=== PATIENT | female | born 1965 | race Caucasian/White ===

== ENCOUNTER 2021-08-11 17:32 | Emergency (ER) | payer OTHER, SELFPAY ==
--- NOTE | ~2021-08-11 | CT_ITS ---
EXAMINATION: CT ANGIOGRAM HEAD CT ANGIOGRAM NECK CLINICAL INFORMATION: Left-sided numbness. Facial numbness. COMPARISON: None available. TECHNIQUE: Initial noncontrast manufacturing engineer chief imaging of the head and neck was performed. Noncontrast head CT was also performed. Test bolus sequences followed by intravenous administration 70 mL of Omnipaque 350. Helical imaging was performed in the axial plane from the aortic arch to the skull vertex. Delayed postcontrast imaging of the head was also performed. The data was processed at the glass technologist's workstation for generation of MIP sequences. Angled MIPs and volume rendered reformatted images were also generated at an offline 3D workstation. Stenoses are assessed in accordance with NASCET criteria unless otherwise indicated. DLP: 2267 mGy-cm FINDINGS: CT Head: There is no evidence of acute intracranial hemorrhage or edematous territorial infarction. There is no abnormal attenuation within the brain parenchyma. Mayfield-white matter differentiation is preserved. The ventricles are normal in size and configuration. No evidence for obstructive hydrocephalus. No abnormal mass effect or midline shift. No extra-axial fluid collections. No pathologic intra-axial enhancement or regional oligemia. No acute soft tissue or osseous abnormalities. Persistent metopic suture. Mild mucosal thickening of the paranasal sinuses. The mastoid air cells and middle ear cavities are clear. Mild degenerative arthropathy of the temporomandibular joints. CT Neck: Heterogeneous generalized enlargement of the thyroid gland. Mildly prominent right-sided level IIa lymph node measures up to 1.3 cm (within normal limits). The remaining cervical soft tissues are within normal limits. Straightening of the normal cervical lordosis. Advanced degenerative disc disease at C5-C6 and C6-C7 with disc-osteophyte complex formation. Facet and uncovertebral joint arthropathy leads to osseous encroachment on the neural foramina at C5-C6 and C6-C7. CT Upper Chest: Nonspecific mosaic attenuation of the upper lungs. Otherwise, the visualized lung apices and upper mediastinum are within normal limits. Neck CTA: Aortic Arch: Normal contour and caliber with mild calcific atherosclerotic disease. Classic 3 vessel branching pattern of the aortic arch. Great Vessel Origins: No significant stenosis of the branch origins. Right Common Carotid Artery: No focal stenosis or occlusion. Cervical Right Internal Carotid Artery: Normal opacification without focal stenosis or occlusion. Left Common Carotid Artery: No focal stenosis or occlusion. Cervical Left Internal Carotid Artery: Normal opacification without focal stenosis or occlusion. Cervical Right Vertebral Artery: Co-dominant. No focal stenosis or occlusion. Cervical Left Vertebral Artery: Co-dominant. No focal stenosis or occlusion. Brain CTA: Intracranial Internal Carotid Arteries: Calcific atherosclerotic disease of the intracranial internal carotid arteries without occlusion. Moderate left-sided and mild right-sided atherosclerotic stenoses of the supraclinoid segments of the internal carotid arteries. Right Anterior Cerebral Artery: Normal A1 segment. Normal opacification of the distal DENISE segments. Left Anterior Cerebral Artery: Normal A1 segment. Normal opacification of the distal DENISE segments. Anterior Communicating Artery: Normal. Right Middle Cerebral Artery: Normal M1 segment of the MCA without focal stenosis or occlusion. Normal arborization of the distal segments. Left Middle Cerebral Artery: Normal M1 segment of the MCA without focal stenosis or occlusion. Normal arborization of the distal segments. Right Vertebral Artery: Normal V4 segment. Normal opacification of the proximal segments of the posterior inferior cerebellar artery. Left Vertebral Artery: Normal V4 segment. Normal opacification of the proximal segments of the posterior inferior cerebellar artery. Basilar Artery: Normal without focal stenosis or occlusion. Normal appearance of the proximal superior cerebellar arteries. Right Posterior Cerebral Artery: The P1 segment is diminutive. origin of the CANDLE MOLDER with robust opacification of the posterior communicating artery. Normal opacification of the distal CANDLE MOLDER segments. Left Posterior Cerebral Artery: Normal P1 segment. Normal opacification of the distal CANDLE MOLDER segments. Normal opacification of the superior sagittal, straight, transverse, and sigmoid sinuses. CT/CT angio head neck IMPRESSION: 1. No evidence of acute intracranial hemorrhage or edematous territorial infarction. 2. CTA of the head and neck without proximal occlusion. Atherosclerotic disease causes mild to moderate stenoses of the supraclinoid segments of the ICAs bilaterally. No additional flow-limiting stenoses. 3. Moderate multilevel degenerative spondyloarthropathy of the cervical spine. 4. Heterogeneous generalized enlargement of the thyroid gland. This may be further characterized with serum thyroid function testing and thyroid ultrasound.
[2021-08-11 17:43] VITALS: BP 156/72; PULSE 74; RESP 18; TEMP 36.6; O2SAT 99; BMI 38.9
[2021-08-11 17:55] LABS: MANUAL DIFF FLAG NO
[2021-08-11 18:08] LABS: Anion Gap 12 (12-20); Blood Urea Nitrogen 11 mg/dL (9-16); Calcium 9.1 mg/dL (8.4-10.2); Carbon Dioxide 25 mmol/L (22-29); Chloride 106 mmol/L (96-108); Creatinine Clr Calc Pharmacy 100.6; Estimated Glomerular Filt Rate > 60; Glucose Random 100 mg/dL (60-115); Potassium 4.8 mmol/L (3.3-5.1); Sodium 138 mmol/L (135-145)
[2021-08-11 18:10] LABS: Basophils Absolute Auto 0.1 X10*3/uL (0.0-0.2); Basophils Percent Auto 0.6 % (0-2); Eosinophils Absolute Auto 0.3 X10*3/uL (0.0-0.4); Hematocrit 37.5 % (37.0-47.0); Hemoglobin 11.6 g/dl (12.0-16.0); Imm Gran Abs Auto 0.03 X10*3/uL (0.00-0.03); Imm Gran Pct Auto 0.4 % (0.0-0.4); Lymphocytes Absolute Auto 2.4 X10*3/uL (1.2-4.9); Mean Corpuscular HGB Conc 30.9 g/dl (31.0-35.0); Mean Corpuscular Hemoglobin 25.3 pg (27.0-33.0); Mean Corpuscular Volume 81.9 fL (80.0-98.0); Mean Platelet Volume 9.3 fL (9.4-12.3); Monocytes Absolute Auto 0.5 X10*3/uL (0.1-1.2); Platelet Count 325 X10*3/uL (160-400); Red Blood Count 4.58 X10*6/uL (4.20-5.50); Red Cell Distribution Width 15.9 % (11.0-16.0); White Blood Count 8.2 X10*3/uL (4.8-10.8)
--- NOTE | 2021-08-11 19:35 | ED_ITS ---
HPI - General Adult General Chief complaint: General Medical Stated complaint: tingling numbing sensations in face and legs Source: patient Mode of arrival: ambulatory Limitations: no limitations History of Present Illness HPI narrative: 56-year-old female presents with 5 days of left lower extremity tingling and 1 day of left-sided facial tingling and arm numbness. Does not report any focal neural deficits, or any other concerning symptoms. Onset (ago): day(s) (5) Location: face, left, upper extremity and lower extremity Severity: moderate Quality: dull Relieving factors: none Exacerbating factors: none Associated symptoms: weakness Treatments prior to arrival: none Related Data Allergies Allergy/AdvReac Type Severity Reaction Status Date / Time atorvastatin [From Lipitor] Allergy Intermediate Rash Verified 08/11/21 17:43 prednisone Allergy Mild Gastrointestinal Verified 08/11/21 17:43 Upset Review of Systems Review of Systems: Constitutional: No Fever, No Chills ENT/Mouth: No Ear Pain, No Hoarseness, No sore throat Eyes: No Eye Pain, No Swelling, No Redness, No Foreign Body Cardiovascular: No Chest Pain, No SOB Respiratory: No Cough, No Dyspnea Gastrointestinal: No Nausea, No Vomiting, No Diarrhea, No abdominal Pain Genitourinary: No Dysuria, No Hematuria Musculoskeletal: No joint pain, No Myalgias, No Joint Swelling Skin: No Skin lacerations, No rash Neuro: Positive left-sided Weakness, positive left-sided facial Numbness, p ositive left-sided facial and extremity Paresthesias, No Loss of Consciousness, No Dizziness, No Headache Psych: No Anxiety/Panic, No Depression Heme/Lymph: no easy bruising, no Lymphadenopathy Endocrine: No Polyuria, No Polydipsia Yes all other systems are reviewed and are negative [facility] Past Medical History Attestation statement: The following information was validated with the patient. Source: old records reviewed Medical History GERD (gastroesophageal reflux disease) HLD (hyperlipidemia) HTN (hypertension) Social History Social History Advance Directives: No Patient : No Physical Exam ED Vital Signs: Vital Signs - 24 hr 08/11/21 17:43 08/12/21 00:21 Temperature 97.9 F Pulse Rate 74 71 Respiratory Rate 18 16 Blood Pressure 156/72 H 121/66 Pulse Oximetry 99 99 BMI result Body Mass Index 38.9 Appearance: Alert. Oriented X3. No acute distress. Head: Normal external exam. Normocephalic. Atraumatic. No Zhao signs noted. No raccoon eyes noted Eyes: PERRLA. EOMI. Conjunctiva and sclera normal. Eyelids normal. ENT: TM's Normal. Pharynx normal. Uvula midline. Moist mucous membranes. No trismus noted. No drooling noted. No muffled voice noted. Neck: Normal inspection. Neck supple. No adenopathy. Thyroid Normal. No meningeal signs. No neck mass noted. CVS: Normal heart rate and rhythm. Heart sound normal. No murmurs noted. Pulses equal to all extremities. Respiratory: No respiratory distress. Painless inspiration. Breath sounds normal. No wheezes/rales/rhonchi noted. Chest nontender. No accessory muscle usage noted or decreased air movement noted. Abdomen: Soft and nontender. Bowel sounds normal in all 4 quadrants. No distention noted. No organomegaly noted. No visible injury noted. Back: No CVA tenderness. Full range of motion noted. Skin: Skin warm and dry. Normal skin color. Normal skin turgor. No rashes/lesions/lacerations noted. Extremities: No lower extremity edema. Extremities exhibit normal range of motion. Extremities nontender. Neuro: cranial nerves 2-12 intact, no focal neural deficits, strength 5/5 to all extremities, No motor deficit. No sensory deficit. NIH Stroke Scale Internal: Initial- Upon Arrival Level of Consciousness: Alert Level of Consciousness Questions: Answers both questions correctly Level of Consciousness Commands: Performs both tasks correctly Best Gaze: Normal Visual: No visual loss Facial Palsy: Normal Motor Arm (Right): No drift Motor Arm (Left): No drift Motor Leg (Right): No drift Motor Leg (Left): No drift Limb Ataxia: Absent Sensory: Normal Best Language: No aphasia Dysarthia: Normal Extinction and Inattention: No abnormality Score: 0 Course Course Course Narrative: 56-year-old female presents with 1 day of left-sided facial tingling, 3 days of left arm numbness and tingling, and 5 days of left lower extremity numbness and tingling. Does not report any loss of balance, changes in vision, headaches, nausea, vomiting, fevers, chills, falls, EtOH or illicit substance abuse, or any other concerning symptoms. Will order CTA of head and neck to rule out brain injury, will order labs and EKG. 00:15 CTA of head and neck negative for acute findings however does show some arthrosclerotic disease causing mild to moderate stenosis of the supraclinoid segments of the ICAs bilaterally. I did discuss this finding in detail with the patient and the patient's , they do understand that they must follow-up primary care physician. 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 This could be what is causing her numbness down the arm and leg. Other incidental finding is the enlargement of the thyroid gland, patient does have a known goiter. Plan of care is to discharge home with referral to Dr. Dean as well as primary care physician.Patient verbalized understanding of and agrees to plan of care to discharge home. Verbalized understanding of signs and symptoms indicating need for emergent intervention Medical Decision Making Differential Diagnosis Differential Diagnosis: CVA, SAH, tumor, ACS Medical Records Medical records reviewed: Yes I reviewed the patient's medical records. Lab Data Lab results reviewed: Yes I reviewed the patient's lab results. Result diagrams: 08/11/21 17:51 08/11/21 17:51 Labs: Lab Results 08/11/21 08/11/21 08/11/21 Range/Units 17:51 17:51 20:14 WBC 8.2 (4.8-10.8) X10*3/uL RBC 4.58 (4.20-5.50) X10*6/uL Hgb 11.6 L (12.0-16.0) g/dl Hct 37.5 (37.0-47.0) % MCV 81.9 (80.0-98.0) fL MCH 25.3 L (27.0-33.0) pg MCHC 30.9 L (31.0-35.0) g/dl RDW 15.9 (11.0-16.0) % Plt Count 325 (160-400) X10*3/uL MPV 9.3 L (9.4-12.3) fL Immature Gran % (Auto) 0.4 (0.0-0.4) % Neut % (Auto) 61.0 (45-73) % Lymph % (Auto) 29.0 (20-40) % Gregory % (Auto) 6.0 (2-11) % Eos % (Auto) 3.0 (0-4) % Baso % (Auto) 0.6 (0-2) % Lymph # (Auto) 2.4 (1.2-4.9) X10*3/uL Gregory # (Auto) 0.5 (0.1-1.2) X10*3/uL Eos # (Auto) 0.3 (0.0-0.4) X10*3/uL Baso # (Auto) 0.1 (0.0-0.2) X10*3/uL Abs Immat Gran (auto) 0.03 (0.00-0.03) X10*3/uL Absolute Neuts (auto) 5.0 (2.0-8.3) x10*3/uL Absolute Nucleated RBC 0.000 (0.0-0.012) X10*3/uL Nucleated RBC % (auto) 0.0 (0.0-0.2) /100WBC PT 11.1 (9.9-13.0) SEC INR 1.0 (0.9-1.1) APTT 33.7 (24.1-38.0) SEC Sodium 138 (135-145) mmol/L Potassium 4.8 (3.3-5.1) mmol/L Chloride 106 (96-108) mmol/L Carbon Dioxide 25 (22-29) mmol/L Anion Gap 12 (12-20) BUN 11 (9-16) mg/dL Creatinine 0.72 (0.5-1.4) mg/dL Estim Creat Clear Calc 100.6 Estimated GFR > 60 Random Glucose 100 (60-115) mg/dL Calcium 9.1 (8.4-10.2) mg/dL Magnesium (1.6-2.6) mg/dL Troponin I High Sens (<3.5-17.0) ng/L B-Natriuretic Peptide (<100) pg/mL 08/11/21 08/11/21 Range/Units 20:14 20:14 WBC (4.8-10.8) X10*3/uL RBC (4.20-5.50) X10*6/uL Hgb (12.0-16.0) g/dl Hct (37.0-47.0) % MCV (80.0-98.0) fL MCH (27.0-33.0) pg MCHC (31.0-35.0) g/dl RDW (11.0-16.0) % Plt Count (160-400) X10*3/uL MPV (9.4-12.3) fL Immature Gran % (Auto) (0.0-0.4) % Neut % (Auto) (45-73) % Lymph % (Auto) (20-40) % Gregory % (Auto) (2-11) % Eos % (Auto) (0-4) % Baso % (Auto) (0-2) % Lymph # (Auto) (1.2-4.9) X10*3/uL Gregory # (Auto) (0.1-1.2) X10*3/uL Eos # (Auto) (0.0-0.4) X10*3/uL Baso # (Auto) (0.0-0.2) X10*3/uL Abs Immat Gran (auto) (0.00-0.03) X10*3/uL Absolute Neuts (auto) (2.0-8.3) x10*3/uL Absolute Nucleated RBC (0.0-0.012) X10*3/uL Nucleated RBC % (auto) (0.0-0.2) /100WBC PT (9.9-13.0) SEC INR (0.9-1.1) APTT (24.1-38.0) SEC Sodium (135-145) mmol/L Potassium (3.3-5.1) mmol/L Chloride (96-108) mmol/L Carbon Dioxide (22-29) mmol/L Anion Gap (12-20) BUN (9-16) mg/dL Creatinine (0.5-1.4) mg/dL Estim Creat Clear Calc Estimated GFR Random Glucose (60-115) mg/dL Calcium (8.4-10.2) mg/dL Magnesium 2.1 (1.6-2.6) mg/dL Troponin I High Sens < 3.5 (<3.5-17.0) ng/L B-Natriuretic Peptide 21 (<100) pg/mL Imaging Data CTA head neck: Attestation: I personally reviewed and interpreted this imaging study as follows: Radiologist's impression: FINDINGS: CT Head: There is no evidence of acute intracranial hemorrhage or edematous territorial infarction. There is no abnormal attenuation within the brain parenchyma. Mayfield-white matter differentiation is preserved. The ventricles are normal in size and configuration. No evidence for obstructive hydrocephalus. No abnormal mass effect or midline shift. No extra-axial fluid collections. No pathologic intra-axial enhancement or regional oligemia. No acute soft tissue or osseous abnormalities. Persistent metopic suture. Mild mucosal thickening of the paranasal sinuses. The mastoid air cells and middle ear cavities are clear. Mild degenerative arthropathy of the temporomandibular joints. CT Neck: Heterogeneous generalized enlargement of the thyroid gland. Mildly prominent right-sided level IIa lymph node measures up to 1.3 cm (within normal limits). The remaining cervical soft tissues are within normal limits. Straightening of the normal cervical lordosis. Advanced degenerative disc disease at C5-C6 and C6-C7 with disc-osteophyte complex formation. Facet and uncovertebral joint arthropathy leads to osseous encroachment on the neural foramina at C5-C6 and C6-C7. CT Upper Chest: Nonspecific mosaic attenuation of the upper lungs. Otherwise, the visualized lung apices and upper mediastinum are within normal limits. Neck CTA: Aortic Arch: Normal contour and caliber with mild calcific atherosclerotic disease. Classic 3 vessel branching pattern of the aortic arch. Great Vessel Origins: No significant stenosis of the branch origins. Right Common Carotid Artery: No focal stenosis or occlusion. Cervical Right Internal Carotid Artery: Normal opacification without focal stenosis or occlusion. Left Common Carotid Artery: No focal stenosis or occlusion. Cervical Left Internal Carotid Artery: Normal opacification without focal stenosis or occlusion. Cervical Right Vertebral Artery: Co-dominant. No focal stenosis or occlusion. Cervical Left Vertebral Artery: Co-dominant. No focal stenosis or occlusion. Brain CTA: Intracranial Internal Carotid Arteries: Calcific atherosclerotic disease of the intracranial internal carotid arteries without occlusion. Moderate left-sided and mild right-sided atherosclerotic stenoses of the supraclinoid segments of the internal carotid arteries. Right Anterior Cerebral Artery: Normal A1 segment. Normal opacification of the distal DENISE segments. Left Anterior Cerebral Artery: Normal A1 segment. Normal opacification of the distal DENISE segments. Anterior Communicating Artery: Normal. Right Middle Cerebral Artery: Normal M1 segment of the MCA without focal stenosis or occlusion. Normal arborization of the distal segments. Left Middle Cerebral Artery: Normal M1 segment of the MCA without focal stenosis or occlusion. Normal arborization of the distal segments. Right Vertebral Artery: Normal V4 segment. Normal opacification of the proximal segments of the posterior inferior cerebellar artery. Left Vertebral Artery: Normal V4 segment. Normal opacification of the proximal segments of the posterior inferior cerebellar artery. Basilar Artery: Normal without focal stenosis or occlusion. Normal appearance of the proximal superior cerebellar arteries. Right Posterior Cerebral Artery: The P1 segment is diminutive. origin of the BROWNFIELD PROGRAM COORDINATOR with robust opacification of the posterior communicating artery. Normal opacification of the distal BROWNFIELD PROGRAM COORDINATOR segments. Left Posterior Cerebral Artery: Normal P1 segment. Normal opacification of the distal BROWNFIELD PROGRAM COORDINATOR segments. Normal opacification of the superior sagittal, straight, transverse, and sigmoid sinuses. CT/CT angio head neck IMPRESSION: 1. No evidence of acute intracranial hemorrhage or edematous territorial infarction. ? 2. CTA of the head and neck without proximal occlusion. Atherosclerotic disease causes mild to moderate stenoses of the supraclinoid segments of the ICAs bilaterally. No additional flow-limiting stenoses. ? 3. Moderate multilevel degenerative spondyloarthropathy of the cervical spine. ? 4. Heterogeneous generalized enlargement of the thyroid gland. This may be further characterized with serum thyroid function testing and thyroid ultrasound. ECG Data Attestation: I personally reviewed and interpreted this ECG as follows: Prior ECG tracings: not available for review Interpretation: Vent. rate 74 BPM RI interval 174 ms QRS duration 78 ms QT/QTc 392/435 ms P-R-T axes 62 -20 16 Normal sinus rhythm Normal ECG No previous ECGs available 11-AUG-2021 19:48:19 Discharge Plan Discharge Clinical Impression: Numbness and tingling of left side of face, Carotid artery stenosis Patient Disposition: Home, Self-Care Instructions: Carotid Artery Disease (DC), Paresthesia (ED) Additional Instructions: You were evaluated for numbness to left side of your face, arm and leg. CT angio of head and neck is negative for acute findings requiring emergent intervention. Incidental findings are bilateral carotid stenosis with mild to moderate occlusion. You must follow up with primary care physician and vascular for further intervention. I referred you to Dr. Dean. Incidental finding on the CT angiogram is an enlarged thyroid, which you have a known goiter. And cervical spondylosis or arthritis of the spine. You may consider following up with pain management or Spinal Orthopedics for further management. Thank you for choosing this emergency department for evaluation. Please follow-up with primary care physician as needed. Return to the emergency department for any new, concerning, or worsening symptoms. Referrals: Tomas Johnson MD [Physician] - 2 days (Cervical spondylosis) Ravi Dean MD [Physician] - 2 days (Bilateral mild to moderate carotid stenosis)
--- NOTE | 2021-08-11 19:39 | ECG_ITS ---
Test Reason : NUMBNESS LEFT LEG /ARM Blood Pressure : / mmHG Vent. Rate : 074 BPM Atrial Rate : 074 BPM P-R Int : 174 ms QRS Dur : 078 ms QT Int : 392 ms P-R-T Axes : 062 -20 016 degrees QTc Int : 435 ms Normal sinus rhythm Normal ECG No previous ECGs available Referred By: Neena Wan Electronically Signed By:Jb Bryson
[2021-08-11 20:32] LABS: Magnesium 2.1 mg/dL (1.6-2.6)
[2021-08-11 20:38] LABS: Prothrombin Time 11.1 SEC (9.9-13.0)
[2021-08-11 20:39] LABS: B Type Natriuretic Peptide 21 pg/mL (<100); Troponin-I High Sensitivity < 3.5 ng/L (<3.5-17.0)
[2021-08-11 20:41] LABS: Partial Thromboplastin Time 33.7 SEC (24.1-38.0)
[2021-08-11] MEDS: iohexoL 350 MG/ML 100 ML INFUS..BTL IV (21:58)
[2021-08-12 00:21] VITALS: BP 121/66; PULSE 71; RESP 16; O2SAT 99
== END 2021-08-12 02:19 | disposition home or self-care (01) ==
PROVIDERS: Nurse Practitioner Family; Emergency Provider Emergency Medicine
DX: R20.2 Paresthesia of skin (principal); I65.23 Occlusion and stenosis of bilateral carotid arteries; I10 Essential (primary) hypertension; R53.1 Weakness; E78.5 Hyperlipidemia, unspecified
CPT/HCPCS: 36415; 70496; 70498; 80048; 83735; 83880; 84484; 85025; 85610; 85730; 93005; 99283; 99284; Q9967

== ENCOUNTER → 2021-09-12 15:04 | Outpatient (BNVA) | payer OTHER, SELFPAY | PROVIDERS: PCP Internal Medicine; Visit Provider Nurse Practitioner Family | DX: Z13.89 Encounter for screening for other disorder (principal) ==

== ENCOUNTER → 2021-09-19 09:19 | Outpatient (BNVA) | payer OTHER, SELFPAY | PROVIDERS: PCP Internal Medicine; Visit Provider Surgery Vascular Surgery | DX: Z13.89 Encounter for screening for other disorder (principal) ==

== ENCOUNTER 2021-10-31 10:25 | Outpatient (REF) | payer OTHER, SELFPAY ==
--- NOTE | ~2021-10-31 | US_ITS ---
EXAMINATION: RIGHT and LEFT LOWER EXTREMITY VENOUS ULTRASOUND (Reflux Exam) CLINICAL INDICATION: leg pain and varicose veins. COMPARISON: None. TECHNIQUE: Color flow triplex imaging and compression Doppler was performed to evaluate both the deep and the superficial systems bilaterally. To evaluate the superficial system, the examination was performed in the upright position. Color-flow Doppler ultrasound and compression ultrasound were utilized. In addition, maneuvers were utilized to demonstrate reflux. FINDINGS: 1. DEEP VENOUS ULTRASOUND OF THE RIGHT LOWER EXTREMITY: Respiratory variation, normal compression and augmented flow are noted in the right common femoral vein as well as the right popliteal vein and there is no evidence of deep venous thrombosis at these locations. There is no evidence of reflux in the deep system in either the common femoral vein or the popliteal vein. There is no evidence of a Malone's cyst. 2. SUPERFICIAL ULTRASOUND WITH DOPPLER OF RIGHT LOWER EXTREMITY: The right great saphenous vein at the saphenofemoral junction measures 8 mm, at the mid thigh 4 mm, [id number] 3 mm, [id number] 3 mm, at mid calf 3 mm and at the ankle measures 2 mm. There is no reflux demonstrated in the right great saphenous vein. The right small saphenous vein measures 2-3 mm and shows no reflux. There are 2 perforators in the proximal thigh that measure 3 mm and do not demonstrate reflux. There is a retail interior designer in the calf that measures 2 mm and does not demonstrate reflux. 3. DEEP VENOUS ULTRASOUND OF THE LEFT LOWER EXTREMITY: Respiratory variation, normal compression and augmented flow are noted in the left common femoral vein as well as the left popliteal vein and there is no evidence of deep venous thrombosis at these locations. There is no evidence of reflux in the deep system in either the common femoral vein or the popliteal vein. . There is no evidence of a Malnoe's cyst. 4. SUPERFICIAL ULTRASOUND WITH DOPPLER OF LEFT LOWER EXTREMITY: Left great saphenous vein at the saphenofemoral junction measures 9 mm, at the mid thigh 4 mm, [id number] 3 mm, [id number] 3 mm, at mid calf 3 mm and at the ankle measures 3 mm. There is no reflux demonstrated in the left great saphenous vein. The left small saphenous vein measures 3-5 mm and shows no reflux. There is a retail interior designer in the calf that measures 3 mm and does not demonstrate reflux. There is a varicosity in the mid thigh that measures 4 mm and does not demonstrate reflux. US/US venous duplex LE BI IMPRESSION: 1. No evidence of reflux or thrombus in the common femoral veins or popliteal veins bilaterally. 2. The saphenous systems are competent bilaterally.
== END 2021-10-31 10:26 | disposition home or self-care (01) ==
LOC: HO.US 10:25
PROVIDERS: PCP Internal Medicine; Visit Provider Surgery Vascular Surgery
DX: I83.11 Varicose veins of right lower extremity with inflammation (principal)
CPT/HCPCS: 93970

== ENCOUNTER 2022-10-19 09:42 | Outpatient (REF) | payer OTHER, SELFPAY ==
--- NOTE | ~2022-10-19 | US_ITS ---
EXAMINATION: US EXTRACRANIAL CAROTID DUPLEX, BILATERAL CLINICAL INFORMATION: Bilateral carotid stenoses. COMPARISON: None available. TECHNIQUE: Real-time ultrasound and Doppler techniques (integrating B-mode 2-D vascular images, Doppler spectral analysis and color-flow Doppler imaging) were utilized to interrogate the extracranial carotid arteries, the vertebral arteries and proximal subclavian arteries bilaterally. The degree of stenosis is determined by criteria similar to NASCET. FINDINGS: Right Side: 1. There is no atherosclerotic plaque seen in the bifurcation/proximal ICA region. 2. The common carotid artery PSV proximally is 11 cm/s and distally 96 cm/s. 3. The proximal internal carotid artery velocities are 112 cm/s systolic and 29 cm/s diastolic. 4. The proximal external carotid artery PSV is 95 cm/s. 5. The vertebral artery shows antegrade flow. 6. The subclavian artery waveforms are normal. Left Side: 1. There is no atherosclerotic plaque seen in the bifurcation/proximal ICA region. 2. The common carotid artery PSV proximally is 130 cm/s and distally 96 cm/s. 3. The proximal internal carotid artery velocities are 50 cm/s systolic and 13 cm/s diastolic. 4. The proximal external carotid artery PSV is 79 cm/s. 5. The vertebral artery shows antegrade flow. 6. The subclavian artery waveforms are normal. Incidental note made of an enlarged heterogeneous thyroid goiter. US/US carotid duplex BI IMPRESSION: 1. RIGHT: Normal right internal carotid artery without atherosclerotic plaque or hemodynamically significant stenosis. 2. LEFT: Normal left internal carotid artery without atherosclerotic plaque or hemodynamically significant stenosis. 3. Enlarged thyroid goiter. Consider dedicated thyroid ultrasound.
== END 2022-10-19 09:43 | disposition home or self-care (01) ==
LOC: HO.HMGCX 09:42
PROVIDERS: PCP Internal Medicine; Visit Provider Surgery Vascular Surgery
DX: I65.23 Occlusion and stenosis of bilateral carotid arteries (principal)
CPT/HCPCS: 93880

== ENCOUNTER → 2022-11-15 10:57 | Outpatient (BNVA) | payer OTHER, SELFPAY | PROVIDERS: PCP Internal Medicine; Visit Provider Surgery Vascular Surgery ==

== ENCOUNTER 2023-04-08 08:14 | Emergency (ER) | payer OTHER, SELFPAY ==
--- NOTE | ~2023-04-08 | CT_ITS ---
EXAMINATION: CT ANGIOGRAM OF THE CHEST WITH AND WITHOUT CONTRAST (CT PULMONARY ANGIOGRAM FOR PE) CLINICAL INFORMATION: Reason for Exam r/o PE COMPARISON: None available. TECHNIQUE: Prior to contrast administration, noncontrast localization images were obtained. Subsequently, multidetector volumetric imaging was performed from the thoracic inlet to below the diaphragms following the administration of 65 mL Omnipaque 350 intravenous contrast. No contrast reaction reported Sagittal, coronal, and MIP oblique sagittal reformatted images were obtained on the CT workstation, uploaded to PACS, and reviewed. This CT examination was performed using dose optimization techniques as appropriate, variously including the following: *Automated exposure control *Adjustment of mA and/or kV according to patient size (this includes techniques or standardized protocols for targeted exams where dose is matched to indication/reason for exam; i.e. extremities or head) *Use of iterative reconstruction technique Total exam dose-length product 283 mGy-cm FINDINGS: QUALITY OF STUDY/CONTRAST BOLUS: Satisfactory. PULMONARY ARTERIES: No pulmonary emboli. THORACIC AORTA: No aneurysm. LUNG: There is diffuse groundglass opacity seen in both lungs likely low-grade inflammatory process. No acute pneumonic consolidation, mass or pulmonary nodules seen. Mild atelectatic changes are seen in the lingula PLEURA: No pleural effusion or pneumothorax. MEDIASTINUM: Normal heart size. No pericardial effusion. No hilar or mediastinal lymphadenopathy. No evidence of septal bowing or right heart strain. CORONARY ARTERY CALCIFICATION: Mild coronary artery calcification seen along the left coronary artery CHEST WALL/AXILLA: There are small shotty lymph nodes seen in left axilla. Benign lymph nodes with central fatty lucency seen in the right axilla. The chest wall is unremarkable. OSSEOUS STRUCTURES: No aggressive lytic or sclerotic process seen. The paravertebral soft tissues are normal. UPPER ABDOMEN: Unremarkable. No reflux of contrast into the hepatic veins to suggest elevated right heart pressures. CT/CT angio chest PE protocol IMPRESSION: No evidence of PE. No evidence of aortic aneurysm or dissection. Groundglass opacity seen throughout both lungs likely low-grade inflammatory process. No acute consolidation seen either. Platelike atelectasis in the lingula. VTE: negative
--- NOTE | ~2023-04-08 | XR_ITS ---
EXAMINATION: XR CHEST CLINICAL INFORMATION: Chest pain COMPARISON: None available. TECHNIQUE: 2 views of the chest were obtained. FINDINGS: No significant abnormality is noted involving the heart, lungs, mediastinum, bony thorax or soft tissues. XR/XR chest 2V IMPRESSION: Unremarkable chest examination.
--- NOTE | 2023-04-08 08:15 | ECG_ITS ---
Test Reason : CHEST PAIN Blood Pressure : / mmHG Vent. Rate : 066 BPM Atrial Rate : 066 BPM P-R Int : 182 ms QRS Dur : 078 ms QT Int : 406 ms P-R-T Axes : 067 -15 012 degrees QTc Int : 425 ms Normal sinus rhythm Low voltage QRS RSR' or QR pattern in V1 suggests right ventricular conduction delay Nonspecific T wave abnormality Anterior leads Abnormal ECG When compared with ECG of 11-AUG-2021 19:48, Inverted T waves have replaced nonspecific T wave abnormality in Anterior leads Referred By: Generic ED Physician Electronically Signed By:RADHA WONG MD
[2023-04-08 08:25] VITALS: BP 111/59; PULSE 70; RESP 16; TEMP 35.9; O2SAT 100; BMI 39.6
--- NOTE | 2023-04-08 09:16 | ED_ITS ---
HPI - Chest Pain General Chief Complaint: Chest Pain Stated Complaint: chest and back pain Time Seen by Provider: 04/08/23 08:50 Source: patient Mode of arrival: ambulatory Limitations: no limitations History of Present Illness HPI narrative: This is a 58 years old female presented to the emergency department complaining of chest pain. She states that the pain started in the back between the shoulder bleed radiated to the chest and back pain has been ongoing for about 1 year and occasionally radiate to the left chest. Denies any exertional symptoms, denies any diaphoresis. Patient has history of hypertension hypercholesterolemia and borderline diabetes. MD complaint: chest pain Onset (ago): month(s) Timing of current episode: episodic Prior episodes: Yes Onset: during rest Pain location: substernal Pain radiation: back Severity: moderate Quality: aching Relieving factors: nothing Exacerbating factors: nothing Context: recent illness Associated symptoms: nausea Risk Factors Coronary artery disease risk factors: diabetes, hyperlipidemia and hypertension Thoracic aortic dissection risk factors: none Related Data Home Medications Medication Instructions Recorded Confirmed aspirin 81 mg tablet,delayed 81 mg PO DAILY 09/12/21 release lisinopril 5 mg tablet 5 mg PO DAILY 09/19/21 cholecalciferol (vitamin D3) 50 50 mcg PO DAILY 11/15/22 mcg (2,000 unit) capsule famotidine 20 mg tablet 20 mg PO BID 11/15/22 simvastatin 40 mg tablet 40 mg PO BEDTIME 11/15/22 fluticasone propionate 50 1 spray intranasal BID PRN 04/08/23 mcg/actuation nasal congestion spray,suspension meclizine 25 mg tablet 25 mg PO TID PRN dizziness 04/08/23 ondansetron HCl 8 mg tablet 8 mg PO Q8H PRN nausea 04/08/23 sumatriptan succinate 25 mg tablet 25 mg PO DAILY MRX1 PRN Migraine 04/08/23 Headache Previous Rx's Medication Instructions Recorded tizanidine 2 mg tablet 2 mg PO Q8H PRN muscle spasticity 09/12/21 #60 tabs naproxen 500 mg tablet (Naprosyn) 500 mg PO BID PRN PAIN #20 tabs 04/08/23 oxycodone 5 mg capsule 5 mg PO Q8H PRN pain #12 caps 04/08/23 Allergies Allergy/AdvReac Type Severity Reaction Status Date / Time atorvastatin [From Lipitor] Allergy Intermediate Rash Verified 11/15/22 11:03 prednisone Allergy Mild Gastrointestinal Verified 11/15/22 11:03 Upset Review of Systems 2 Constitutional: Constitutional: Reports no additional constitutional complaints ENT: Reports system reviewed and no additional complaints, except as documented Cardiovascular: Cardiovascular: Reports no additional cardiovascular complaints Respiratory: Respiratory: Reports no additional respiratory complaints Neurologic: Reports system reviewed and no additional complaints, except as documented [facility] Past Medical History Medical History HLD (hyperlipidemia) HTN (hypertension) GERD (gastroesophageal reflux disease) Social History Social History Patient Tobacco Use Status: Never used Tobacco Smoked in Last 30 Days: No Advance Directives: No Advance Directives Information Provided: No Patient : No Physical Exam 2 Vital Signs: Vital Signs: Last Vital Signs Temp 96.7 F L 04/08/23 08:25 Pulse 65 04/08/23 11:05 Resp 16 04/08/23 11:05 BP 127/56 L 04/08/23 11:05 Pulse Ox 99 04/08/23 11:05 O2 Del Method Room Air 04/08/23 11:05 BMI result Body Mass Index 39.6 Const: General: well developed and alert Nutritional Appearance: average body habitus Limitations: no limitations HEENT: Head: Yes normal to inspection Ears: hearing grossly normal bilaterally General nose exam: Normal external nose present Face and sinus: Yes normal facial exam Mouth: Normal oral and palatal mucosa present Teeth and gingiva: dentition normal Throat: Yes posterior oropharynx normal Neck: Neck: Yes normal visual inspection Chest: Chest palpation & inspection: normal inspection of the chest Resp: Effort & Inspection: normal respiratory effort Auscultation: clear to auscultation bilaterally Cardio: Jugular venous distension: no JVD Rate: regular rate Rhythm: r egular rhythm GI: Inspection: Yes normal to inspection Palpation (GI): Soft to palpation, not firm and nontender Auscultation: normal bowel sounds Skin: General skin exam: no rashes or lesions noted, elasticity normal and turgor normal Lesions: no lesions Rashes: no rashes Extrem: General: Yes normal to inspection, Yes full ROM and Yes capillary refill normal Course Reevaluation(s) Reevaluation #1: feels better imaging negative labs ok delta tropi flat Time: 15:30 Medications Administered Discontinued Medications Generic Name Dose Route Start Last Admin Trade Name Michael PRN Reason Stop Dose Admin Iohexol 65 ml 04/08/23 12:04 04/08/23 12:05 Iohexol 350 Mg/Ml 75 Ml Infus..Btl IV 04/08/23 12:05 65 ml ONCE ONE Administration Medical Decision Making Medical Decision Making [facility] Narrative: Patient presented to the emergency department complaining of back pain radiates to the chest,, CTA was negative a delta troponin was flat plan discharge Differential Diagnosis Differential Diagnoses: The differential diagnosis associated with the presentation includes ACS/PE/aortic dissection Admission/Observation Consideration of admission/observation: Escalation of care including admission/observation considered Consult Healthcare Provider Management of the patient was discussed with: Hospitalist Lab Data [facility] Lab Attestation statement: I reviewed the patient's lab results. 04/08/23 09:43 04/08/23 11:13 Labs: Lab Results 04/08/23 04/08/23 04/08/23 Range/Units 09:43 11:13 14:22 WBC 7.0 (4.8-10.8) X10*3/uL RBC 4.35 (4.20-5.50) X10*6/uL Hgb 11.4 L (12.0-16.0) g/dl Hct 36.3 L (37.0-47.0) % MCV 83.4 (80.0-98.0) fL MCH 26.2 L (27.0-33.0) pg MCHC 31.4 (31.0-35.0) g/dl RDW 14.3 (11.0-16.0) % Plt Count 279 (160-400) X10*3/uL MPV 9.5 (9.4-12.3) fL Immature Gran % (Auto) 0.3 (0.0-0.4) % Neut % (Auto) 61.8 (45-73) % Lymph % (Auto) 27.0 (20-40) % [place] % (Auto) 7.4 (2-11) % Eos % (Auto) 2.9 (0-4) % Baso % (Auto) 0.6 (0-2) % Lymph # (Auto) 1.9 (1.2-4.9) X10*3/uL [place] # (Auto) 0.5 (0.1-1.2) X10*3/uL Eos # (Auto) 0.2 (0.0-0.4) X10*3/uL Baso # (Auto) 0.0 (0.0-0.2) X10*3/uL Abs Immat Gran (auto) 0.02 (0.00-0.03) X10*3/uL Absolute Neuts (auto) 4.3 (2.0-8.3) x10*3/uL Absolute Nucleated RBC 0.000 (0.0-0.012) X10*3/uL Nucleated RBC % (auto) 0.0 (0.0-0.2) /100WBC Sodium 139 (135-145) mmol/L Potassium 4.5 (3.3-5.1) mmol/L Chloride 107 (96-108) mmol/L Carbon Dioxide 28 (22-29) mmol/L Anion Gap 9 L (12-20) BUN 12 (9-16) mg/dL Creatinine 0.74 (0.5-1.4) mg/dL Estim Creat Clear Calc 96.4 Estimated GFR > 60 Random Glucose 93 (60-115) mg/dL Calcium 10.0 D (8.4-10.2) mg/dL Troponin I High Sens < 2.7 < 2.7 (<3.5-17.0) ng/L Independent Interpretation I performed an independent interpretation of an: EKG Interpretation: Normal sinus rhythm rate [address]-T changes normal electrocardiogram Radiology Impression Discussion of test interpretation with radiology: I have reviewed the radiologist's reading. Radiologist Impression: CORONARY ARTERY CALCIFICATION: Mild coronary artery calcification seen along the left coronary artery CHEST WALL/AXILLA: There are small shotty lymph nodes seen in left axilla. Benign lymph nodes with central fatty lucency seen in the right axilla. The chest wall is unremarkable. OSSEOUS STRUCTURES: No aggressive lytic or sclerotic process seen. The paravertebral soft tissues are normal. UPPER ABDOMEN: Unremarkable. No reflux of contrast into the hepatic veins to suggest elevated right heart pressures. CT/CT angio chest PE protocol IMPRESSION: No evidence of PE. No evidence of aortic aneurysm or dissection. Groundglass opacity seen throughout both lungs likely low-grade inflammatory process. No acute consolidation seen either. Platelike atelectasis in the lingula. VTE: negative External Record Review External record reviewed: Inpatient record Prescription Management I considered prescription management with: Pain Medication Discharge Plan Discharge Clinical Impression: Chest pain, Pain, upper back Patient Disposition: Home, Self-Care Instructions: Chest Pain (DC), Back Pain (ED) Prescriptions: New oxycodone 5 mg capsule 5 mg PO Q8H PRN (Reason: pain) Qty: 12 0RF Rx Instructions: Partial Fill upon patient request. naproxen [Naprosyn] 500 mg tablet 500 mg PO BID PRN (Reason: PAIN) Qty: 20 0RF No Action ondansetron HCl 8 mg tablet 8 mg PO Q8H PRN (Reason: nausea) sumatriptan succinate 25 mg tablet 25 mg PO DAILY MRX1 PRN (Reason: Migraine Headache) meclizine 25 mg tablet 25 mg PO TID PRN (Reason: dizziness) fluticasone propionate 50 mcg/actuation spray,suspension 1 spray intranasal BID PRN (Reason: congestion) aspirin 81 mg tablet,delayed release (DR/EC) 81 mg PO DAILY tizanidine 2 mg tablet 2 mg PO Q8H PRN (Reason: muscle spasticity) Qty: 60 0RF lisinopril 5 mg tablet 5 mg PO DAILY famotidine 20 mg tablet 20 mg PO BID cholecalciferol (vitamin D3) 50 mcg (2,000 unit) capsule 50 mcg PO DAILY simvastatin 40 mg tablet 40 mg PO BEDTIME Referrals: Kirstie Nassar MD [Primary Care Provider] - 2 days Stand Alone Forms: Work/School Release
[2023-04-08 09:50] LABS: MANUAL DIFF FLAG NO
[2023-04-08 09:53] LABS: Basophils Percent Auto 0.6 % (0-2); Eosinophils Absolute Auto 0.2 X10*3/uL (0.0-0.4); Eosinophils Percent Auto 2.9 % (0-4); Hematocrit 36.3 % (37.0-47.0); Hemoglobin 11.4 g/dl (12.0-16.0); Imm Gran Abs Auto 0.02 X10*3/uL (0.00-0.03); Imm Gran Pct Auto 0.3 % (0.0-0.4); Lymphocytes Absolute Auto 1.9 X10*3/uL (1.2-4.9); Mean Corpuscular HGB Conc 31.4 g/dl (31.0-35.0); Mean Corpuscular Hemoglobin 26.2 pg (27.0-33.0); Mean Corpuscular Volume 83.4 fL (80.0-98.0); Mean Platelet Volume 9.5 fL (9.4-12.3); Monocytes Absolute Auto 0.5 X10*3/uL (0.1-1.2); Monocytes Percent Auto 7.4 % (2-11); Neutrophils Absolute Auto 4.3 x10*3/uL (2.0-8.3); Neutrophils Percent Auto 61.8 % (45-73); Platelet Count 279 X10*3/uL (160-400); Red Blood Count 4.35 X10*6/uL (4.20-5.50); Red Cell Distribution Width 14.3 % (11.0-16.0)
--- OUTSIDE RECORDS SUMMARY | 2023-04-08 10:00 | XMS_ITS | Continuity of Care Document ---
Author Name Unknown Organization [facility] Address [address] [place] [address] [address] [place] [address]- Care Team Providers Care Tie Tape Machine Operator Name Role Phone Kristie Nassar MD Primary Care Physician Encounter [facility] [place] Date(s): 11/22/22 - 11/29/22 [facility] [address] [place] [address]- Attending Physician: Zaina Robison RD Allergies, Adverse Reactions, Alerts Substance Reaction Severity Status predniSONE Active Lipitor Prednisone Active Medications aspirin 81 mg oral delayed release tablet 81 mg, 1, tablet, By Mouth, Daily, Refills 0, Maintenance, 03/06/22 10:27:00 EDT, Partial fill uponpatient request if the prescription is for a schedule II opioid drug. Start Date: 03/06/22 Status: Ordered famotidine 20 mg oral tablet 20 mg, 1, tablet, By Mouth, 2 times a day, Refills 0, Maintenance, 03/06/22 10:28:00 EDT, Partial fill upon patient request if the prescription is for a schedule II opioid drug. Start Date: 03/06/22 Status: Ordered lisinopril 5 mg oral tablet 5 mg, 1, tablet, By Mouth, Daily, # 30 tablet, Refills 0, Maintenance, 03/06/22 10:26:00 EDT, Partial fill upon patient request if the prescription is for a schedule II opioid drug. Start Date: 03/06/22 Status: Ordered simvastatin 40 mg oral tablet 40 mg, 1, tablet, By Mouth, Daily at bedtime, # 30 tablet, Refills 0, Maintenance, 12/14/20 7:34:00EDT, Partial fill upon patient request if the prescription is for a schedule II opioid drug. Start Date: 12/14/20 Status: Ordered Problem List Condition Confirmation Course Effective Dates Status H ealth Status Informant Binge eating disorder, mild, in partial remission Confirmed Active Diabetes Confirmed Active GERD (gastroesophageal reflux disease) Confirmed Active Hyperlipidemia Confirmed Active Severe obesity (BMI 35.0-39.9) with comorbidity Confirmed Active Social History Social History Type Response Smoking Status Never (less than 100 in lifetime) entered on: 02/23/22 Sex Patient Care team information Care Team Personnel Name: Elisha Gaspar RN Position: [facility] RN Member Role: Primary Care Nurse Name: Kristie Nassar MD Position: [facility] Physician - Primary Care Member Role: PCP Address: Address: [address] [place] [address]- Care Team Related Persons Name: MONI ROD Address: home [address] [place] [address] Name: AUGUSTINA ROD Address: home [address] [place] [address] Name: ANAYA URIAS Address: home [address] [place] [address] Name: TED ARAMBULA Address: home [address] [place] [address]
--- OUTSIDE RECORDS SUMMARY | 2023-04-08 10:00 | XMS_ITS | Continuity of Care Document ---
Author Name Unknown Organization [facility] Address [address] [place] [address] [address] [place] [address]- Care Team Providers Care Cognos Name Role Phone Kristie Nassar MD Primary Care Physician Encounter [facility] [place] Date(s): 11/22/22 - 12/22/[address] [place], [place] [address] Attending Physician: Sher Perez Admitting Physician: AdmSher dinh Referring Physician: Admtr ArRylee Allergies, Adverse Reactions, Alerts Substance Reaction Severity [...] Team Personnel Name: Elisha Gaspar RN Position: [facility] RN Member Role: Primary Care Nurse Name: Kristie Nassar MD Position: [facility] Physician - Primary Care Member Role: PCP Address: Address: [address] [place] [address]- Care Team Related Persons Name: MONI ROD Address: [address] [place] [address] Name: AUGUSTINA ROD Address: home [address] [place] [address] Name: ANAYA URIAS Address: home [address] [place] [address] Name: TED ARAMBULA Address: home [address] [place] [address]
[2023-04-08 11:05] VITALS: BP 127/56; PULSE 65; RESP 16; O2SAT 99
[2023-04-08 11:32] LABS: Anion Gap 9 (12-20); Blood Urea Nitrogen 12 mg/dL (9-16); Carbon Dioxide 28 mmol/L (22-29); Chloride 107 mmol/L (96-108); Creatinine Clr Calc Pharmacy 96.4; Estimated Glomerular Filt Rate > 60; Glucose Random 93 mg/dL (60-115); Potassium 4.5 mmol/L (3.3-5.1); Sodium 139 mmol/L (135-145)
[2023-04-08 11:43] LABS: Troponin-I High Sensitivity < 2.7 ng/L (<3.5-17.0)
[2023-04-08] MEDS: iohexoL 350 MG/ML 75 ML INFUS..BTL 65 ML IV (12:05)
[2023-04-08 14:49] LABS: Troponin-I High Sensitivity < 2.7 ng/L (<3.5-17.0)
== END 2023-04-08 15:55 | disposition home or self-care (01) ==
PROVIDERS: Emergency Provider Emergency Medicine; PCP Internal Medicine
DX: R07.9 Chest pain, unspecified (principal); M54.6 Pain in thoracic spine; I10 Essential (primary) hypertension; E78.5 Hyperlipidemia, unspecified; R73.03 Prediabetes; Z79.82 Long term (current) use of aspirin; Z79.899 Other long term (current) drug therapy
CPT/HCPCS: 36415; 71046; 71275; 80048; 84484; 85025; 93005; 99284; 99285; Q9967

== ENCOUNTER 2023-10-31 21:06 | Emergency (ER) | payer OTHER, SELFPAY ==
[2023-10-31 21:41] VITALS: BP 129/75; PULSE 82; RESP 16; TEMP 35.9; O2SAT 98; BMI 39.0
[2023-11-01 00:11] VITALS: BP 143/72; PULSE 77; RESP 18; TEMP 36.8; O2SAT 97
== END 2023-11-01 01:53 | disposition left against medical advice (07) ==
PROVIDERS: Emergency Provider Emergency Medicine; PCP Internal Medicine
DX: M79.675 Pain in left toe(s) (principal)
CPT/HCPCS: 99281

== ENCOUNTER 2024-01-29 12:08 | Emergency (ER) | payer OTHER, SELFPAY ==
--- NOTE | 2024-01-29 | ECG_ITS ---
Test Reason : CHEST TIGHTNESS Blood Pressure : / mmHG Vent. Rate : 074 BPM Atrial Rate : 074 BPM P-R Int : 174 ms QRS Dur : 086 ms QT Int : 360 ms P-R-T Axes : 065 -27 009 degrees QTc Int : 399 ms Normal sinus rhythm Low voltage QRS Cannot rule out Anterior infarct (cited on or before 29-JAN-2024) Abnormal ECG When compared with ECG of 08-APR-2023 08:15, No significant change was found Referred By: Generic ED Physician Electronically Signed By:JESSEE OLEARY
--- NOTE | ~2024-01-29 | XR_ITS ---
EXAMINATION: XR CHEST CLINICAL INFORMATION: Chest pain COMPARISON: Chest x-ray April 08, 2023 TECHNIQUE: 2 views of the chest were obtained. FINDINGS: No significant abnormality is noted involving the heart, lungs, mediastinum, bony thorax or soft tissues. XR/XR chest 2V IMPRESSION: Unremarkable examination. Electronically signed by: Marc Ansari MD 01/29/2024 03:57 PM EDT RP
[2024-01-29 12:39] LABS: MANUAL DIFF FLAG NO
[2024-01-29 12:40] LABS: Basophils Absolute Auto 0.1 X10*3/uL (0.0-0.2); Basophils Percent Auto 0.7 % (0-2); Eosinophils Absolute Auto 0.2 X10*3/uL (0.0-0.4); Eosinophils Percent Auto 2.5 % (0-4); Hematocrit 39.7 % (37.0-47.0); Hemoglobin 12.4 g/dl (12.0-16.0); Imm Gran Abs Auto 0.04 X10*3/uL (0.00-0.03); Imm Gran Pct Auto 0.5 % (0.0-0.4); Lymphocytes Percent Auto 26.7 % (20-40); Mean Corpuscular HGB Conc 31.2 g/dl (31.0-35.0); Mean Corpuscular Hemoglobin 25.7 pg (27.0-33.0); Mean Corpuscular Volume 82.2 fL (80.0-98.0); Mean Platelet Volume 9.5 fL (9.4-12.3); Monocytes Absolute Auto 0.4 X10*3/uL (0.1-1.2); Monocytes Percent Auto 5.4 % (2-11); Neutrophils Absolute Auto 4.8 x10*3/uL (2.0-8.3); Neutrophils Percent Auto 64.2 % (45-73); Platelet Count 270 X10*3/uL (160-400); Red Blood Count 4.83 X10*6/uL (4.20-5.50); Red Cell Distribution Width 14.8 % (11.0-16.0); White Blood Count 7.5 X10*3/uL (4.8-10.8)
[2024-01-29 12:59] LABS: Alanine Aminotransferase 39 U/L (0-31); Albumin Level 4.5 g/dL (3.5-5.0); Alkaline Phosphatase 97 U/L (39-117); Anion Gap 14 (12-20); Aspartate Amino Transferase 34 U/L (5-31); Bilirubin Total 0.4 mg/dL (0.0-1.0); Blood Urea Nitrogen 9 mg/dL (9-16); Calcium 9.7 mg/dL (8.4-10.2); Carbon Dioxide 23 mmol/L (22-29); Chloride 108 mmol/L (96-108); Estimated Glomerular Filt Rate > 60; Glucose Random 112 mg/dL (60-115); Potassium 4.2 mmol/L (3.3-5.1); Sodium 141 mmol/L (135-145)
[2024-01-29 13:05] VITALS: BP 118/69; PULSE 74; RESP 18; TEMP 36.8; O2SAT 98; BMI 37.5
--- NOTE | 2024-01-29 13:07 | ED_ITS ---
HPI - Chest Pain General Chief Complaint: Chest Pain Stated Complaint: CP-upper back pain Time Seen by Provider: 01/29/24 13:47 Source: patient Mode of arrival: ambulatory Limitations: no limitations History of Present Illness ED Provider: Erum Samano PA-C HPI narrative: Patient is a 58 year old assigned female at with a history of GERD presenting to the emergency department today with central chest pressure. Patient states that since yesterday she has had midsternal chest pain that doesn't radiate anywhere. Patient denies any dizziness, lightheadedness, abdominal pain, nausea, vomiting, fever, chills, blurry vision, double vision, loss of vision, difficulty breathing, shortness of breath, back pain, night sweats, pain with urination, increased urinary frequency, increased urinary urgency, blood in her urine or stool, syncope or a near syncopal episode, recent trauma or falls, bowel incontinence, bladder incontinence, or any other complaints at this time. Pain radiation: none Relieving factors: nothing Exacerbating factors: nothing Related Data Home Medications ?Medication ?Instructions ?Recorded ?Confirmed aspirin 81 mg tablet,delayed 81 mg PO DAILY 09/12/21 release lisinopril 5 mg tablet 5 mg PO DAILY 09/19/21 cholecalciferol (vitamin D3) 50 50 mcg PO DAILY 11/15/22 mcg (2,000 unit) capsule famotidine 20 mg tablet 20 mg PO BID 11/15/22 simvastatin 40 mg tablet 40 mg PO BEDTIME 11/15/22 fluticasone propionate 50 1 spray intranasal BID PRN 04/08/23 mcg/actuation nasal congestion spray,suspension meclizine 25 mg tablet 25 mg PO TID PRN dizziness 04/08/23 ondansetron HCl 8 mg tablet 8 mg PO Q8H PRN nausea 04/08/23 sumatriptan succinate 25 mg tablet 25 mg PO DAILY MRX1 PRN Migraine 04/08/23 Headache Previous Rx's ?Medication ?Instructions ?Recorded tizanidine 2 mg tablet 2 mg PO Q8H PRN muscle spasticity 09/12/21 #60 tabs naproxen 500 mg tablet (Naprosyn) 500 mg PO BID PRN PAIN #20 tabs 04/08/23 oxycodone 5 mg capsule 5 mg PO Q8H PRN pain #12 caps 11/20/23 Allergies Allergy/AdvReac Type Severity Reaction Status Date / Time atorvastatin [From Lipitor] Allergy Intermediate Rash Verified 01/29/24 13:08 prednisone Allergy Mild Gastrointestinal Verified 01/29/24 13:08 Upset Review of Systems 2 Constitutional: Constitutional: Reports no additional constitutional complaints, Denies chills, Denies fever(s) and Denies night sweats Eyes: Eyes: Reports no additional eye complaints, Denies blurry vision, Denies change in vision, Denies diplopia, Denies eye discharge, Denies loss of vision and Denies eye pain ENT: Denies dizziness Cardiovascular: Cardiovascular: Reports no additional cardiovascular complaints, Reports chest pain, Denies lightheadedness, Denies Loss of Consciousness and Denies dyspnea Respiratory: Respiratory: Reports no additional respiratory complaints and Denies dyspnea Gastrointestinal: Gastrointestinal: Reports no additional gastrointestinal complaints, Denies abdominal pain, Denies melena, Denies hematochezia, Denies change in bowel habits and Denies change in stool character Genitourinary: Genitourinary: Denies hematuria, Denies urinary frequency, Denies dysuria, Denies urinary incontinence, Denies urinary hesitancy and Denies urinary urgency Musculoskeletal: Musculoskeletal: Reports no additional musculoskeletal complaints, Denies numbness and Denies tingling Neurologic: Denies dizziness, Denies loss of vision, Denies numbness and Denies tingling Psychiatric: Psychiatric: Reports no additional psychiatric complaints Endocrine: Endocrine: Reports no additional endocrine complaints Hematologic/Lymphatic: Hematologic/Lymphatic: Reports no additional hematologic/lymphatic complaints Allergic/Immunologic: Allergic/Immunologic: Reports no additional allergic/immunologic complaints [facility] Past Medical History Attestation statement: The following information was validated with the patient. Source: old records reviewed and nursing notes reviewed Medical History HLD (hyperlipidemia) HTN (hypertension) GERD (gastroesophageal reflux disease) Social History Social History Patient Tobacco Use Status: Never used Tobacco Advance Directives: No Advance Directives Information Provided: No Do you have a plan to hurt others: No Plan Physical Exam 2 Vital Signs: Vital Signs: Last Vital Signs Temp 98.4 F 01/29/24 15:40 Pulse 65 01/29/24 15:40 Resp 18 01/29/24 15:40 BP 127/69 01/29/24 15:40 Pulse Ox 98 01/29/24 13:05 O2 Del Method Room Air 01/29/24 13:05 BMI result Body Mass Index 37.5 Const: General: cooperative, no acute distress, alert and awake Nutritional Appearance: well nourished Orientation/consciousness: patient oriented x3 Limitations: no limitations HEENT: Head: Yes normal to inspection and Yes atraumatic Ears: hearing grossly normal bilaterally and external ears normal General nose exam: Normal external nose present, no nasal discharge noted and no epistaxis Face and sinus: Yes normal facial exam, No abrasion and No laceration Mouth: Normal oral and palatal mucosa present, no drooling and no muffled voice Eyes: General: appearance normal, both eyes and all related structures P eriorbital: periorbital findings normal Eyelids: Yes eyelids normal C onjunctivae: conjunctivae normal Pupils: Equal, round and reactive pupils present EOM: EOMs intact bilaterally Neck: Neck: Yes normal visual inspection, Yes full ROM and Yes no lymphadenopathy Chest: Chest palpation & inspection: normal inspection of the chest Resp: Effort & Inspection: normal respiratory effort and able to speak in complete sentences GI: Inspection: Yes normal to inspection Neuro: General: patient oriented x3 and moves all extremities Cranial nerves: Yes Equal, round and reactive pupils present Cognition (Neuro): n ormal cognition Extrem: General: Yes normal to inspection, Yes full ROM and Yes capillary refill normal Psych: Appearance: grossly normal Mental Status: mental status grossly normal Affect: normal affect Attitude: cooperative Thought process: N ormal thought process present Thought content: Normal thought content present Insight: Good insight present (Psych) Course Course Course Narrative: This is an RME done by JT Javier: Additional HPI, ROS, PE not included below will be deferred to primary provider. 58 yo f hx of htn, hld, gerd presents w/ cp substernal non radiating and chronic back pain on going since this morning. Patient reports heavy pressure to the substernal region. Unable to identify precipitating or alleviating factors Appearance: Alert.? Oriented X3.? No acute cardiopulmonary distress distress.? Head: Normocephalic, atraumatic, no step-offs or deformities CVS: Pulses normal.? Respiratory: No respiratory distress.? Abdomen: Soft and nontender.? Skin: ? Normal skin color. Extremities: 5/5 strength to bilateral upper and lower extremities Neuro: Oriented X 3.? No motor deficit.? No sensory deficit. Medications Administered Discontinued Medications Generic Name Dose Route Start Last Admin Trade Name Michael PRN Reason Stop Dose Admin Sucralfate 1 gm 01/29/24 14:25 01/29/24 14:38 Sucralfate Oral Suspension 1 Gm/10 Ml Oral.Susp PO 01/29/24 14:26 1 gm ONCE ONE Administration Medical Decision Making Medical Decision Making [facility] Narrative: Patient is a 58 year old assigned female at with a history of GERD presenting to the emergency department today with chest pain. Patient's physical exam was unremarkable. Patient's blood work was unremarkable. Patient's EKG was unremarkable. Patient's chest x-ray showed no acute process. I explained my physical exam findings as well as all test results to the patient. I answered all questions asked by the patient. I stressed the importance of the patient taking her medication as directed (either prescribed or as the over the counter packaging recommends). I stressed the importance of the patient following up with her primary care provider. I stressed the importance of the patient returning to the emergency department immediately if her symptoms were to worsen or if she were to develop any dizziness, shortness of breath, difficulty breathing, chest pain, blurry vision, loss of vision, nausea, vomiting, abdominal pain, fever, chills, back pain, or any other complaints. Patient verbalized agreement and understanding with this treatment plan and discharge. Differential Diagnosis Differential Diagnoses: The differential diagnosis associated with the presentation includes Chest pain NSTEMI STEMI Atypical chest pain GERD Epigastric pain Admission/Observation Consideration of admission/observation: Escalation of care including admission/observation considered Patient would have been admitted to the hospital had her work up had any findings where hospital admission was appropriate and her clinical presentation warranted hospital admission. Lab Data [facility] Lab Attestation statement: I reviewed the patient's lab results. My interpretation of these results are in the [facility] Rationale portion of this note. 01/29/24 12:32 01/29/24 12:32 Labs: Lab Results 01/29/24 Range/Units 12:32 WBC 7.5 (4.8-10.8) X10*3/uL RBC 4.83 (4.20-5.50) X10*6/uL Hgb 12.4 (12.0-16.0) g/dl Hct 39.7 (37.0-47.0) % MCV 82.2 (80.0-98.0) fL MCH 25.7 L (27.0-33.0) pg MCHC 31.2 (31.0-35.0) g/dl RDW 14.8 (11.0-16.0) % Plt Count 270 (160-400) X10*3/uL MPV 9.5 (9.4-12.3) fL Immature Gran % (Auto) 0.5 H (0.0-0.4) % Neut % (Auto) 64.2 (45-73) % Lymph % (Auto) 26.7 (20-40) % [place] % (Auto) 5.4 (2-11) % Eos % (Auto) 2.5 (0-4) % Baso % (Auto) 0.7 (0-2) % Lymph # (Auto) 2.0 (1.2-4.9) X10*3/uL [place] # (Auto) 0.4 (0.1-1.2) X10*3/uL Eos # (Auto) 0.2 (0.0-0.4) X10*3/uL Baso # (Auto) 0.1 (0.0-0.2) X10*3/uL Abs Immat Gran (auto) 0.04 H (0.00-0.03) X10*3/uL Absolute Neuts (auto) 4.8 (2.0-8.3) x10*3/uL Absolute Nucleated RBC 0.000 (0.0-0.012) X10*3/uL Nucleated RBC % (auto) 0.0 (0.0-0.2) /100WBC PT Cancelled INR Cancelled Sodium 141 (135-145) mmol/L Potassium 4.2 (3.3-5.1) mmol/L Chloride 108 (96-108) mmol/L Carbon Dioxide 23 (22-29) mmol/L Anion Gap 14 (12-20) BUN 9 (9-16) mg/dL Creatinine 0.79 (0.5-1.4) mg/dL Estim Creat Clear Calc TNP Estimated GFR > 60 Random Glucose 112 (60-115) mg/dL Calcium 9.7 (8.4-10.2) mg/dL Total Bilirubin 0.4 (0.0-1.0) mg/dL AST 34 H (5-31) U/L ALT 39 H (0-31) U/L Alkaline Phosphatase 97 (39-117) U/L Troponin I High Sens < 2.7 (<3.5-17.0) ng/L Total Protein 8.0 (6.5-8.0) g/dL Albumin 4.5 (3.5-5.0) g/dL Independent Interpretation I performed an independent interpretation of an: EKG and Plain X-Ray Interpretation: My interpretation is in agreement with the radiologist's impression of this imaging study. LEXAMINATION: XR CHEST CLINICAL INFORMATION: Chest pain COMPARISON: Chest x-ray April 08, 2023 TECHNIQUE: 2 views of the chest were obtained. FINDINGS: No significant abnormality is noted involving the heart, lungs, mediastinum, bony thorax or soft tissues. XR/XR chest 2V IMPRESSION: Unremarkable examination. Electronically signed by: Marc Ansari MD 01/29/2024 03:57 PM EDT RP Dictated By: Marc Ansari MD Signed By: Electronically signed by Marc Ansari MD 01/29/24 1557 Vent. Rate : 074 BPM Atrial Rate : 074 BPM P-R Int : 174 ms QRS Dur : 086 ms QT Int : 360 ms P-R-T Axes : 065 -27 009 degrees QTc Int : 399 ms Normal sinus rhythm Low voltage QRS Cannot rule out Anterior infarct (cited on or before 29-JAN-2024) Abnormal ECG When compared with ECG of 08-APR-2023 08:15, No significant change was found DD/ 1215 Radiology Impression Discussion of test interpretation with radiology: I have reviewed the radiologist's reading. Discharge Plan Discharge Clinical Impression: Atypical chest pain Patient Disposition: Home, Self-Care Instructions: Chest Pain (DC) Additional Instructions: Follow up with your primary care provider and a GI specialist. Return to the emergency department immediately if your symptoms worsen or if you develop any dizziness, shortness of breath, difficulty breathing, chest pain, blurry vision, loss of vision, nausea, vomiting, abdominal pain, fever, chills, back pain, or any other complaints. Prescriptions: No Action ondansetron HCl 8 mg tablet 8 mg PO Q8H PRN (Reason: nausea) sumatriptan succinate 25 mg tablet 25 mg PO DAILY MRX1 PRN (Reason: Migraine Headache) meclizine 25 mg tablet 25 mg PO TID PRN (Reason: dizziness) fluticasone propionate 50 mcg/actuation spray,suspension 1 spray intranasal BID PRN (Reason: congestion) oxycodone 5 mg capsule 5 mg PO Q8H PRN (Reason: pain) Qty: 12 0RF Rx Instructions: Partial Fill upon patient request. naproxen [Naprosyn] 500 mg tablet 500 mg PO BID PRN (Reason: PAIN) Qty: 20 0RF aspirin 81 mg tablet,delayed release (DR/EC) 81 mg PO DAILY tizanidine 2 mg tablet 2 mg PO Q8H PRN (Reason: muscle spasticity) Qty: 60 0RF lisinopril 5 mg tablet 5 mg PO DAILY famotidine 20 mg tablet 20 mg PO BID cholecalciferol (vitamin D3) 50 mcg (2,000 unit) capsule 50 mcg PO DAILY simvastatin 40 mg tablet 40 mg PO BEDTIME Referrals: Kristie Nassar MD [Primary Care Provider] - Interventions: ED Discharge Assessment Last Done: 01/29/24 15:40 Discharge Date/Time: 01/29/24 15:40 Print Language: Romansh
[2024-01-29 13:09] LABS: Troponin-I High Sensitivity < 2.7 ng/L (<3.5-17.0)
[2024-01-29] MEDS: Sucralfate Oral Suspension 1 GM/10 ML ORAL.SUSP PO (14:38)
[2024-01-29 15:40] VITALS: BP 127/69; PULSE 65; RESP 18; TEMP 36.9
== END 2024-01-29 15:40 | disposition home or self-care (01) ==
PROVIDERS: Emergency Provider Emergency Medicine Emergency Medical Services; PCP Internal Medicine
DX: R07.89 Other chest pain (principal); I10 Essential (primary) hypertension; K21.9 Gastro-esophageal reflux disease without esophagitis; E78.5 Hyperlipidemia, unspecified
CPT/HCPCS: 36415; 71046; 80053; 84484; 85025; 93005; 99283

== ENCOUNTER 2024-09-14 08:01 | Outpatient (AMB) | payer OTHER, SELFPAY ==
--- NOTE | 2024-09-14 08:09 | AM.OFFWIN_ITS ---
Intake Vital Signs 09/14/24 08:10 Weight 233 lb BP 128/82 Blood Pressure Location Lt brachial Position Sitting Pulse 82 Pulse Source Pulse Oximeter Temp 98.2 F Temp Source Oral Pulse Oximetry (%) 98 Oxygen Delivery Method Room Air Intake Visit Reasons: EP Cold symptoms Intake Note: Patient here for runny nose, congestion and cough that started last saturday night. Patient Tobacco Use Status: Never used Tobacco Allergies atorvastatin [From Lipitor] Allergy (Intermediate, Verified 09/14/24 08:19) Rash prednisone Allergy (Mild, Verified 09/14/24 08:19) Gastrointestinal Upset Do you need a note to return to daycare/school/sports/work: No HPI HPI Comments History of Present Illness Details History - The patient is a 59-year-old female pr esenting with respiratory symptoms, including a persistent non-productive cough for the past week, worsening at night, resulting in sleep interruptions and fatigue. - She reports nasal congestion and occas ional ear discomfort associated with coughing spells but denies fever or spontaneous shortness of breath. - Recent employment of OTC remedies such as Sudafed and Nyquil has not provided relief, leading to the examination of the utility of prescribed Flonase and new interventions. - She has a background of essential hype rtension treated with lisinopril and diagnosed sleep apnea, which complicates nasal breathing. - The patient is considerably fatigued, noting that even minimal efforts exacerbate her condition. Physical Exam General: Cooperative, healthy appearing, comfortable and no acute distress Orientation/consciousness: Patient oriented x3 Limitations: No limitations Head: Normal to inspection Ears: Hearing grossly normal bilaterally, external ears normal and TM's normal left, fluid right TM Nose: Normal external nose present, Normal nares present and No nasal discharge present Face and sinus: Normal facial exam and Sinuses tender Mouth: Normal oral and palatal mucosa present and moist mucous membranes Throat: Yes tonsils normal, Yes uvula midline. Posterior oropharynx erythema Eyes: Appearance normal, both eyes and all related structures Neck: Normal visual inspection Respiratory: Clear to auscultation bilaterally. Normal respiratory effort, able to speak in complete sentences, Actively coughing, no respiratory distress, not tachypneic, no tripod positioning and no use of accessory muscles Cardiovascular: Regular rate and rhythm. Normal S1 and S2 Skin: No rashes or lesions noted Neuro: Patient oriented x3 Extremities: Normal to inspection and Yes no clubbing, cyanosis or edema PFSH Medical History HLD (hyperlipidemia) HTN (hypertension) GERD (gastroesophageal reflux disease) Social History Patient Tobacco Use Status: Never used Tobacco Review of Systems Const All systems reviewed & are unremarkable except as noted in HPI and below Physical Exam Vital Signs: Last Vital Signs Temp 98.2 F 09/14/24 08:10 Pulse 82 09/14/24 08:10 BP 128/82 09/14/24 08:10 Pulse Ox 98 09/14/24 08:10 Oxygen Delivery Method Room Air 09/14/24 08:10 Assessment & Plan Assessment & Plan (1) URI, acute: Code(s): J06.9 - Acute upper respiratory infection, unspecified Plan: VSS, pt well appearing and PE unremarkable. For this visit, we conducted specific viral testing for suspected etiologies, with tests including PCR for COVID-19, influenza, and RSV to ascertain diagnosis. Symptomatically, continued use of Flonase at a suggested dosage of twice daily was advised to combat nasal inflammation and fluid build-up in her left ear. A prescription of Tessalon Perles was provided for nighttime cough suppression and ibuprofen was recommended for day use to alleviate throat inflammation. A trial inhaler was also prescribed, for potential symptomatic relief. Emphasis was placed on appropriate Flonase usage to maximize efficacy, educated patient on proper technique. Additionally, rest and temporary workplace absence were suggested to facilitate her recovery. Consider Zpak if viral panel negative. Patient was informed and verbally consented to the use of an ambient scribe for clinic note documentation during this visit Orders: Orders SARS-CoV2/FLU/RSV Today R09.89 - Other specified symptoms and signs involving the circulatory and respiratory systems Medications: New benzonatate 200 mg PO BEDTIME PRN 10 caps 0RF cough albuterol sulfate 90 mcg/actuation 2 puffs inhalation Q6H PRN 8.5 grams 0RF shortness of breath or wheezing or cough Coding Level of Care Code New Pt Level 3 (99270) Diagnoses URI, acute J06.9
[2024-09-14 08:10] VITALS: BP 128/82; PULSE 82; TEMP 36.8; O2SAT 98
--- OUTSIDE RECORDS SUMMARY | 2024-09-14 08:14 | XMS_ITS | Clinical Summary ---
Author Organization [address] [place] [address] [place] [phone] Phone Care Team Providers Care Mds Rn Name Role Phone Kristie Nassar MD Primary Care Provider [phone] Allergies Active Allergy Reactions Criticality Noted Date Comments Atorvastatin Calcium 03/08/2006 rash all over Oxycodone Nausea And Vomiting 08/23/2021 Medications omeprazole (PriLOSEC) [address] capsule Take 1 capsule (20 mg total) by mouth 2 (two) times a day. 4 Active cyanocobalamin (VITAMIN B-12) 100 mcg tablet Take 1 tablet (100 mcg total) by mouth 1 (one) time each day. 4 Active fluocinonide (LIDEX) 0.05 % ointment Apply a thin layer to the affected area MWF nights 4 01/09/20 25 Active nystatin (MYCOSTATIN) ointment Apply every morning in a thin area 4 01/09/20 25 Active cholecalciferol (VITAMIN D-3) 50 mcg (2,000 unit) capsule Take 1 capsule (2,000 Units total) by mouth 1 (one) time each day. 4 Active simvastatin (ZOCOR) 40 mg tablet Take 1 Tablet by mouth at bedtime. 4 Active SUMAtriptan (IMITREX) 25 mg tablet 1 tab PO at onset of headache. May repeat dose once after 2 hours, if needed. 3 Active fluticasone propionate (FLONASE) 50 mcg/actuation nasal spray Administer 1 spray into each nostril 2 (two) times a day. Shake gently. Before first use, prime pump. After use, clean tip and replace cap. 16 g 4 Active meclizine (ANTIVERT) 25 mg tablet Take 1 tablet (25 mg total) by mouth 3 (three) times a day if needed for dizziness. 30 tablet 4 Active lisinopriL (PRINIVIL,ZESTR IL) 5 mg tablet TAKE 1 TABLET BY MOUTH EVERYDAY AT BEDTIME 90 tablet 1 5 Active aspirin 81 mg EC tablet TAKE 1 TABLET BY MOUTH EVERY DAY 90 tablet 1 5 Active Active Problems Problem Noted Date Diagnosed Date Morbid obesity with BMI of 4 0.0-44.9, adult ([facility] V24, [facility] V28) 03/20/2024 Chronic left shoulder pain 08/30/2023 Carotid stenosis, bilateral 03/11/2023 Overview (03/20/2024): [facility] [place] mild to mod Carotid USN 11/09 - no stenosis JAIME (obstructive sleep apnea) 09/28/2022 Overview (03/20/2024): UNTREATED (11/05/23 & 05/02/23) Type 2 diabetes mellitus wit h peripheral vascular disease ([facility] V24, [facility] V28) 08/28/2021 COVID-19 virus infection 03/10/2021 Overview (03/20/2024): 12/07 covid pneumonia Lichen sclerosus 05/26/2020 Overview (08/17/2024): B12 deficiency 03/26/2020 Thoracic osteoarthritis 03/26/2020 Hypertension 09/09/2019 Vitamin D deficiency 12/31/2018 Goiter 08/11/2012 Hyperthyroidism 08/02/2010 Overview (03/20/2024): subclinical Cervical high risk human pap illomavirus (HPV) DNA test positive 08/06/2007 Overview (03/20/2024): Repeat Pap q 6 months. Colpo negative 08/06/07. Hypercholesterolemia 01/03/2006 Migraine without aura 01/03/2006 Fibromyalgia 12/30/2005 Esophageal reflux 09/10/2005 Resolved Problems Problem Noted Date Diagnosed Date Resolved Date Vulvar atrophy 07/06/2023 08/17/2024 Overview (03/20/2024): Last Assessment & Plan: Not well controlled due to non-compliance. Explained that she will need to use Estrace regularly for full effect. She will do so. Reviewed areas and amount of application. Encounters Date Type Department Care Team Description 08/26/2024 3:05 PM EDT - 08/26/2024 11:59 PM EDT Hospital Encounter XRAY [address] [phone] Chronic right shoulder pain Discharge Disposition: Home or Self Care 08/26/2024 2:30 PM EDT Office Visit Adult Medicine [address] [phone] Kristie Nassar MD B12 deficiency (Primary Dx); Gastroesophageal reflux disease without esophagitis; Primary hypertension; Hypercholesterolemia ; Type 2 diabetes mellitus with peripheral vascular disease ([facility] V24, [facility] V28); Hyperthyroidism; Vitamin D deficiency; Chronic right shoulder pain 08/13/2024 Telephone Adult Medicine [address] [phone] Kristie Nassar MD Labs Only 08/13/2024 Telephone Obstetrics and Gynecology [address] [phone] Archana Elizondo MD Request For Order(s) from Last 3 Months Immunizations Name Administration Dates Next Due Pneumococcal polysaccharide 23 valent (Pneumovax 23) 2yo and older 12/26/2021 TD, Adsorbed, Preservative Free 05/20/2003 Td Tetanus diptheria (Tdvax) 7yo and older 06/20 Tdap Tetanus diptheria acell ular pertussis (Boostrix; Adacel) 7yo and older 12/19/2011 Surgical History Surgery Date Site/Laterality Comments TONSILLECTOMY age 6 CERVICAL BIOPSY W/ LOOP ELEC TRODE EXCISION LEEP ESOPHAGOGASTRODUODENOSCOPY 06/18/2012 : normal COLONOSCOPY 03/05/2016 : wnl to cecum SCREENING MAMMOGRAM 12/22/2022 Bilateral Medical History Medical History Date Comments Esophageal reflux Pure hypercholesterolemia 01/03/2006 Hyperthyroidism 08/02/2010 Hypertension 09/09/2019 COVID-19 virus infection 03/10/2021 : 12/07 covid pneumonia JAIME (obstructive sleep apnea) 09/28/2022 Cervical high risk human pap illomavirus (HPV) DNA test positive 08/06/2007 Repeat Pap q 6 months. Colpo negative 08/06/07. Fibromyalgia 12/30/2005 Goiter 08/11/2012 Migraine without aura 01/03/2006 Type 2 diabetes mellitus wit h peripheral vascular disease ([facility] V24, [facility] V28) 08/28/2021 Vitamin D deficiency 12/31/2018 Family History Medical History Relation Name Comments Other: blood disease Aunt maternal Heart attack Father hypertension, a rthritis Diabetes Maternal Grandfather leg amp utations Heart attack Maternal Grandmother diabete s Diabetes Mother CABG, CHF, HTN, COPD, precancerous colon polyps, arthritis Heart attack Sister x 2 diabetes insipi dus, brain tumor (age 8) spinal tumor (age 12) Relation Name Status Comments Aunt maternal Father Alive Maternal Grandfather Maternal Grandmother Mother Paternal Grandfather Paternal Grandmother Sister x 2 Alive Social History Tobacco Use Types Packs/Day Years Used Date Smoking Tobacco: Never Smokeless Tobacco: Never Tobacco Cessation:Counseling Given: Not Answered Alcohol Use Standard Drinks/Week Comments Yes 0 (1 standard drink = 0.6 oz pur e alcohol) Comments Unknown Sex and Gender Information Value Date Recorded Sex Assigned at Not on file Legal Sex Female 2:11 PM EST Gender Identity Not on file Sexual Orientation Not on file Obstetrics History Last Filed Vital Signs Vital Sign Reading Time Taken Comments Blood Pressure 120/70 08/26/2024 2:38 PM EDT Pulse 75 08/26/2024 2:38 PM EDT Temperature 35.7 ??C (96.2 ??F) 08/26/2024 2:38 PM ED T Respiratory Rate 16 08/26/2024 2:38 PM EDT Oxygen Saturation 98% 08/26/2024 2:38 PM EDT Inhaled Oxygen Concentration - - Weight 108 kg (237 lb 8 oz) 08/26/2024 2:38 PM E DT Height 160 cm (5' 3 ) 08/26/2024 2:38 PM EDT Body Mass Index 42.07 08/26/2024 2:38 PM EDT Plan of Treatment Upcoming Encounters Date Type Department Care Team (Late st Contact Info) Description 09/15/2024 3:45 PM EDT Office Visit Obstetrics and Gynecology - [address] [phone] Archana Elizondo MD [address] [place], [place] 09/21/2024 3:30 PM EDT Consult Orthopedics - [address] [phone] Jaswant Gray PA [address] [place], [place] 12/29/2024 4:30 PM EDT Office Visit [facility] - [address] [phone] Allyson Sharp PA [address] [place], [place] 01/20/2025 11:20 AM EDT Office Visit [facility] [address] [facility] [address] [place] [phone] Meena Escalante MD [address] [place] [address] 02/16/2025 2:30 PM EDT Consult Bariatric Surgery - [place] 175 [facility] [address] [place] [phone] Monica Suarez PA [address] [place] [address] Health Maintenance Due Date Last Done Comments Diabetes: Annual Retina Eye Exam 1977 Hepatitis B Vaccines (1 of 3 - 19+ 3-dose series) 1986 Zoster Vaccines (1 of 2) 2017 Social Influencers of Health Screening 04/28/2022 Pneumococcal Vaccine: 50+ Years (2 of 2 - PCV) 12/26/2022 12/26/2021 Pneumococcal Vaccine: Pediatrics (0 to 5 Years) and At-Risk Patients (6 to 64 Years) (2 of 2 - PCV) 12/26/2022 12/26/2021 COVID-19 Vaccine (2023- season) 2024 04/12/2021, 03/18/2021 Depression Screening 08/15/2024 08/16/2023 Diabetes: Annual Foot Exam 10/31/2024 11/01/2023 Breast Cancer Screening 12/22/2024 12/23/19 23, 12/02/2021, 11/30/2020, Additional history exists Influenza Vaccine (Season Ended) 2025 Diabetes: Blood Sugar Control Test (HGBA1C) 02/19/2025 08/20/2024, 02/05/2024, 02/05/2024 Cervical Cancer Screening: HPV 05/26/2025 05/26/2020 Diabetes: Annual Urine Albumin-Creatinine Ratio (uACR) 08/20/2025 08/20/2024, 08/22/2022 Diabetes: Annual GFR (Glomerular Filtration Rate) 08/20/2025 08/20/2024, 02/05/2024, 02/05/2024 Hypertension/CHF/CAD Annual BMP Blood Test 08/20/2025 08/20/2024, 02/05/2024, 02/05/2024 Colorectal Cancer Screening: Colonoscopy 03/05/2026 03/05/2016 Cholesterol Screening (Lipid Panel) 08/20/2029 08/20/2024, 02/05/2024, 02/05/2024 DTaP,Tdap,and Td Vaccines (3 - Td or Tdap) 06/20/2033 06/20/2023, 12/19/2011, 05/20/2003 HIV Screening Completed 07/23/2018 Hepatitis C Screening Completed 07/23/2018 HIB Vaccines Aged Out No longer eligi ble based on patient's age to complete this topic HPV Vaccines Aged Out No longer eligi ble based on patient's age to complete this topic Hepatitis A Vaccines Aged Out No long er eligible based on patient's age to complete this topic IPV Vaccines Aged Out No longer eligi ble based on patient's age to complete this topic MMR Vaccines Aged Out No longer eligi ble based on patient's age to complete this topic Meningococcal ACWY Vaccine Aged Out N o longer eligible based on patient's age to complete this topic Meningococcal B Vaccine Aged Out No l onger eligible based on patient's age to complete this topic RSV Immunization Patients Under 20 months Aged Out No longer eligible based on patient's age to complete this topic Varicella Vaccines Aged Out No longer eligible based on patient's age to complete this topic Procedures Procedure Name Priority Date/Time Associated Diagnosis Comments VITAMIN D 25 HYDROXY Routine 08/26/2024 3:35 PM EDT Vitamin D deficiency VITAMIN B12 Routine 08/26/2024 3:35 PM EDT B12 deficiency THYROID STIMULATING HORMONE WITH REFLEX TO FREE T4 AND FREE T3 Routine 08/26/2024 3:35 PM EDT Hyperthyroidism XR SHOULDER 2+ VIEWS RIGHT Routine 08/26/2024 3:12 PM EDT Chronic right shoulder pain CBC WITH AUTO DIFFERENTIAL Routine 08/20/2024 9:19 AM EDT B12 deficiency MICROALBUMIN CREATININE URINE RATIO Routine 08/20/2024 9:19 AM EDT Type 2 diabetes mellitus with peripheral vascular disease (CMS/HCC V24, CMS/HCC V28) LIPID PANEL WITH REFLEX TO DIRECT LDL Routine 08/20/2024 9:19 AM EDT Hypercholesterolem ia HEMOGLOBIN A1C Routine 08/20/2024 9:19 AM EDT Type 2 diabetes mellitus with peripheral vascular disease (CMS/HCC V24, CMS/HCC V28) COMPREHENSIVE METABOLIC PANEL Routine 08/20/2024 9:19 AM EDT Type 2 diabetes mellitus with peripheral vascular disease (CMS/HCC V24, CMS/[facility] V28) CBC AND DIFFERENTIAL Routine 08/20/2024 9:19 AM EDT B12 deficiency DIABETES FOOT EXAM Routine 11/01/2023 DEPRESSION SCREENING Routine 08/16/2023 SCREENING MAMMOGRAPHY BI 2-VIEW BREAST INC CAD Routine 12/22/2022 7:40 AM EDT Encounter for other screening for malignant neoplasm of breast HPV Routine 05/26/2020 HEPATITIS C SCREENING Routine 07/23/2018 HIV SCREENING Routine 07/23/2018 COLONOSCOPY Routine 03/05/2016 from Last 3 Months or Most Recently Relevant to Health Maintenance Results * Thyroid stimulating hormone with reflex to free t4 and free t3 (08/26/2024 3:35 PM EDT) TSH 1.32 0.40 - 4.00 mcIU/mL LAB CHEMISTRY METHOD 08/27/2024 5:42 PM EDT [facility] Blood Venous blood specimen / Unknown Venipuncture / Unknown 08/26/2024 3:35 PM EDT 08/26/2024 3:35 PM EDT us Kristie Nassar MD LAB BLOOD ORDERABLES Final Resul t [facility] [address] [place] [address], * (ABNORMAL) Vitamin D 25 hydroxy (08/26/2024 3:35 PM EDT) Vit D, 25-Hydroxy 24.1(L) 30.0 - 80.0 ng/mL LAB CHEMISTRY METHOD 08/26/2024 7:39 PM EDT [facility] Blood Venous blood specimen / Unknown Venipuncture / Unknown 08/26/2024 3:35 PM EDT 08/26/2024 3:35 PM EDT Kristie Nassar MD LAB BLOOD ORDERABLES Final Resul t Performing Organization Address [facility]/ZIP Co de Phone Number [facility] [address] [place] [address], [place] [phone] * Vitamin B12 (08/26/2024 3:35 PM EDT) Vitamin B-12 339 250 - 900 pcg/mL LAB CHEMISTRY METHOD 08/26/2024 7:21 PM EDT [facility] Blood Venous blood specimen / Unknown Venipuncture / Unknown 08/26/2024 3:35 PM EDT 08/26/2024 3:35 PM EDT Kristie Nassar MD LAB BLOOD ORDERABLES Final Resul t Performing Organization Address [facility] Co de Phone Number [facility] [address] [place] [address], [place] [phone] * XR Shoulder 2+ Views Right (08/26/2024 3:12 PM EDT) Anatomical Region Laterality Modality Upper Extremities, Shoulder Right Radi ographic Imaging 08/26/2024 7:12 PM EDT Impressions 08/26/2024 7:15 PM EDT Minimal degenerative changes at the acromioclavicular joint. POS - [id number] -------- FINAL REPORT -------- Dictated By: Alicia Nichols Dictated Date: 08/26/2024 19:12 ET Assigned Physician: Alicia Nichols Reviewed and Electronically Signed By: Alicia Nichols Signed Date: 08/26/2024 19:15 ET Workstation ID: [id number] Transcribed By: Self Edit Transcribed Date: 08/26/2024 19:12 ET Narrative 08/26/2024 7:15 PM EDT EXAM: Right shoulder x-ray HISTORY: Chronic right shoulder pain. COMPARISON: None FINDINGS: 4 views performed. Minimal degenerative changes at the acromioclavicular joint. ??No appreciable degenerative changes at the glenohumeral joint. ??No evidence of an acute fracture or dislocation. ??No destructive bone lesion. ??No definite soft tissue calcifications. Procedure Note Alciia Nichols MD - 08/26/2024 EXAM: Right shoulder x-ray HISTORY: Chronic right shoulder pain. COMPARISON: None FINDINGS: 4 views performed. Minimal degenerative changes at the acromioclavicular joint. Noappreciable degenerative changes at the glenohumeral joint. No evidenceof an acute fracture or dislocation. No destructive bone lesion. Nodefinite soft tissue calcifications. IMPRESSION: Minimal degenerative changes at the acromioclavicular joint. POS - [id number] -------- FINAL REPORT -------- Dictated By: Alicia Nichols Dictated Date: 08/26/2024 19:12 ET Assigned Physician: Alicia Nichols Reviewed and Electronically Signed By: Alicia Nichols Signed Date: 08/26/2024 19:15 ET Workstation ID: [id number] Transcribed By: Self Edit Transcribed Date: 08/26/2024 19:12 ET Kristie Nassar MD IMG XR PROCEDURES Final Result * (ABNORMAL) Lipid panel with reflex to direct LDL (08/20/2024 9:19 AM EDT) Cholesterol 193 0 - 200 mg/dL LAB CHEMISTRY METHOD 08/20/2024 4:40 PM EDT [facility] Triglycerides 200(H) 0 - 150 mg/dL LAB CHEMISTRY METHOD 08/20/2024 4:40 PM EDT [facility] HDL 44 >=40 mg/dL LAB CHEMISTRY METHOD 08/20/2024 4:40 PM EDT [facility] LDL Calculated 109(H) 0 - 100 mg/dL LAB CHEMISTRY METHOD 08/20/2024 4:40 PM EDT [facility] VLDL Cholesterol Daniel 40 mg/dL LAB CHEMISTRY METHOD 08/20/2024 4:40 PM EDT [facility] Non HDL Chol. (LDL+VLDL) 149(H) <145 mg/dL LAB CHEMISTRY METHOD 08/20/2024 4:40 PM EDT [facility] Chol/HDL Ratio 4.4 0.0 - 4.4 LAB CHEMISTRY METHOD 08/20/2024 4:40 PM EDT [facility] Blood Venous blood specimen / Unknown Venipuncture / Unknown 08/20/2024 9:19 AM EDT 08/20/2024 9:19 AM EDT us Kristie Nassar MD LAB BLOOD ORDERABLES Final Resul t [facility] [address] [place] [address], * (ABNORMAL) CBC auto differential (08/20/2024 9:19 AM EDT) WBC 7.8 4.8 - 10.8 K/mcL LAB HEMETOLOGY METHOD 08/20/2024 10:59 AM EDT [facility] RBC 4.70 3.80 - 4.80 M/mcL LAB HEMETOLOGY METHOD 08/20/2024 10:59 AM EDT [facility] Hemoglobin 12.1 11.5 - 16.0 g/dL LAB HEMETOLOGY METHOD 08/20/2024 10:59 AM EDT [facility] Hematocrit 39.5 35.0 - 47.0 % LAB HEMETOLOGY METHOD 08/20/2024 10:59 AM [facility] MCV 83.7 79.0 - 98.0 FL LAB HEMETOLOGY METHOD 08/20/2024 10:59 AM [facility] MCH 25.6(L) 27.0 - 32.0 pcg LAB HEMETOLOGY METHOD 08/20/2024 10:59 AM [facility] MCHC 30.6(L) 32.0 - 37.0 g/dL LAB HEMETOLOGY METHOD 08/20/2024 10:59 AM [facility] RDW 15.0 11.0 - 15.0 % LAB HEMETOLOGY METHOD 08/20/2024 10:59 AM [facility] Platelets 314 130 - 400 K/mcL LAB HEMETOLOGY METHOD 08/20/2024 10:59 AM [facility] MPV 10.2 7.0 - 11.0 FL LAB HEMETOLOGY METHOD 08/20/2024 10:59 AM [facility] NRBC 0.0 <1.0 % LAB HEMETOLOGY METHOD 08/20/2024 10:59 AM [facility] NRBC Absolute 0.00 <0.10 K/mcL LAB HEMETOLOGY METHOD 08/20/2024 10:59 AM [facility] Neutrophils Relative 59.9 % LAB HEMETOLOGY METHOD 08/20/2024 10:59 AM [facility] Lymphocytes Relative 29.9 % LAB HEMETOLOGY METHOD 08/20/2024 10:59 AM [facility] Monocytes Relative 6.2 % LAB HEMETOLOGY METHOD 08/20/2024 10:59 AM [facility] Eosinophils Relative 2.8 % LAB HEMETOLOGY METHOD 08/20/2024 10:59 AM [facility] Basophils Relative 0.9 % LAB HEMETOLOGY METHOD 08/20/2024 10:59 AM EDT [facility] Immature Granulocytes Relative 0.3 % LAB HEMETOLOGY METHOD 08/20/2024 10:59 AM EDT [facility] Neutrophils Absolute 4.68 1.50 - 7.00 K/mcL LAB HEMETOLOGY METHOD 08/20/2024 10:59 AM EDT [facility] Lymphocytes Absolute 2.33 1.00 - 5.00 K/mcL LAB HEMETOLOGY METHOD 08/20/2024 10:59 AM EDT [facility] Monocytes Absolute 0.48 0.20 - 1.00 K/mcL LAB HEMETOLOGY METHOD 08/20/2024 10:59 AM EDT [facility] Eosinophils Absolute 0.22 0.00 - 0.50 K/mcL LAB HEMETOLOGY METHOD 08/20/2024 10:59 AM EDT [facility] Basophils Absolute 0.07 0.00 - 0.20 K/mcL LAB HEMETOLOGY METHOD 08/20/2024 10:59 AM EDT [facility] Immature Granulocytes Absolute 0.02 0.00 - 0.03 K/mcL LAB HEMETOLOGY METHOD 08/20/2024 10:59 AM EDT [facility] Blood Venous blood specimen / Unknown Venipuncture / Unknown 08/20/2024 9:19 AM EDT 08/20/2024 9:19 AM EDT us Kristie Nassar MD LAB BLOOD ORDERABLES Final Resul t [facility]) [facility] [address] [place] [address], * Microalbumin creatinine urine ratio (08/20/2024 9:19 AM EDT) Creatinine, Urine 118.0 mg/dL LAB CHEMISTRY METHOD 08/20/2024 11:17 AM EDT [facility] Microalb, Ur 5.3 0.0 - 29.0 mg/L LAB CHEMISTRY METHOD 08/20/2024 11:17 AM EDT [facility] Microalb/Creat Ratio 4 <30 mg/g creat LAB CHEMISTRY METHOD 08/20/2024 11:17 AM EDT [facility] Urine Urine specimen obtained by clean catch procedure / Unknown Non-blood Collection / Unknown 08/20/2024 9:19 AM EDT 08/20/2024 9:19 AM EDT us Kristie Nassar MD LAB URINE ORDERABLES Final Resul t Performing Organization Address [facility]/ZIP Co de Phone Number [facility] [address] [place] [address], [place] [phone] * (ABNORMAL) Hemoglobin A1c (08/20/2024 9:19 AM EDT) Hemoglobin A1C 6.7(H) <6.5 % LAB CHEMISTRY METHOD 08/20/2024 11:04 PM EDT [facility] Mean Bld Glu Estim. 146 mg/dL LAB CHEMISTRY METHOD 08/20/2024 11:04 PM EDT [facility] Blood Venous blood specimen / Unknown Venipuncture / Unknown 08/20/2024 9:19 AM EDT 08/20/2024 9:19 AM EDT us Kristie Nassar MD LAB BLOOD ORDERABLES Final Resul t [facility] [address] [place] [address], [place] [phone] * (ABNORMAL) Comprehensive metabolic panel (08/20/2024 9:19 AM EDT) Sodium 135 133 - 145 mmol/L LAB CHEMISTRY METHOD 08/20/2024 4:40 PM EDT [facility] Potassium 4.1 3.5 - 5.5 mmol/L LAB CHEMISTRY METHOD 08/20/2024 4:40 PM [facility] Chloride 103 96 - 110 mmol/L LAB CHEMISTRY METHOD 08/20/2024 4:40 PM [facility] CO2 27 21 - 32 mmol/L LAB CHEMISTRY METHOD 08/20/2024 4:40 PM [facility] Anion Gap 5 3 - 11 LAB CHEMISTRY METHOD 08/20/2024 4:40 PM [facility] Glucose 120(H) 70 - 100 mg/dL LAB CHEMISTRY METHOD 08/20/2024 4:40 PM [facility] BUN 13 5 - 25 mg/dL LAB CHEMISTRY METHOD 08/20/2024 4:40 PM [facility] Creatinine 0.77 0.50 - 1.10 mg/dL LAB CHEMISTRY METHOD 08/20/2024 4:40 PM [facility] eGFR 90 >=60 mL/min/1. 73m2 LAB CHEMISTRY METHOD 08/20/2024 4:40 PM [facility] Comment:Calculation based on the??Chronic Kidney Disease Epidemiology Collaboration (CKD-EPI) equation refit??without adjustment for race. BUN/Creatinine Ratio 16.9 LAB CHEMISTRY METHOD 08/20/2024 4:40 PM [facility] Calcium 9.3 8.5 - 10.5 mg/dL LAB CHEMISTRY METHOD 08/20/2024 4:40 PM [facility] AST (SGOT) 23 10 - 42 unit/L LAB CHEMISTRY METHOD 08/20/2024 4:40 PM [facility] ALT (SGPT) 29 10 - 60 unit/L LAB CHEMISTRY METHOD 08/20/2024 4:40 PM [facility] Alkaline Phosphatase 111 42 - 121 unit/L LAB CHEMISTRY METHOD 08/20/2024 4:40 PM EDT [facility] Total Protein 7.8 6.0 - 8.0 g/dL LAB CHEMISTRY METHOD 08/20/2024 4:40 PM EDT [facility] Albumin 3.9 3.2 - 5.0 g/dL LAB CHEMISTRY METHOD 08/20/2024 4:40 PM EDT [facility] Total Bilirubin 0.5 0.0 - 1.4 mg/dL LAB CHEMISTRY METHOD 08/20/2024 4:40 PM EDT [facility] Blood Venous blood specimen / Unknown Venipuncture / Unknown 08/20/2024 9:19 AM EDT 08/20/2024 9:19 AM EDT Kristie Nassar MD LAB BLOOD ORDERABLES Final Resul t [facility] [address] [place] [address], * Diabetes Foot Exam (11/01/2023) Diabetes: Annual Foot Exam abstracted Historical Provider HEALTH MAINTENANCE Final Result * Depression Screening (08/16/2023) Depression Screening abstracted Historical Provider HEALTH MAINTENANCE Final Result * SCREENING MAMMOGRAPHY BI 2-VIEW BREAST INC CAD (12/22/2022 7:40 AM EDT) Anatomical Region Laterality Modality Radiographic Vanessa ging 12/02/2021 11:0 0 AM EDT Narrative 12/26/2022 1:05 PM EDT This is a summary report. The complete report is available in the patient's medical record. If you cannot access the medical record, please contact the sending organization for a detailed fax or copy. Exam: Screening mammogram Findings: Digital bilateral full-field screening mammography is performed with tomosynthesis and interpreted with the aid of computer-aided detection. ??Comparison is made with 12/02/2021 and as far back as 09/16/2018. Breast parenchyma is heterogeneously dense, limiting mammographic sensitivity. ??No new suspicious mass, architectural distortion, or suspicious calcifications. Impression: No mammographic evidence of malignancy. BI-RADS 1 - negative Procedure Note Alicia Nichols MD - 06/24/2023 This is a summary report. The complete report is available in thepatient's medical record. If you cannot access the medical record, pleasecontact the sending organization for a detailed fax or copy. Exam: Screening mammogram Findings: Digital bilateral full-field screening mammography is performedwith tomosynthesis and interpreted with the aid of computer-aideddetection. Comparison is made with 12/02/2021 and as far back as09/16/2018. Breast parenchyma is heterogeneously dense, limiting mammographicsensitivity. No new suspicious mass, architectural distortion, orsuspicious calcifications. Impression: No mammographic evidence of malignancy. BI-RADS 1 - negative Kristie Nassar MD IMG XR PROCEDURES Final Result * Cervical Cancer Screening: HPV (05/26/2020) Pathologist [facility] Cervical Cancer Screening: HPV negative, abstracted Result [facility] Provider HEALTH MAINTENANCE Final Result * HIV Screening (07/23/2018) [facility] HIV Screening abstracted Result [facility] Provider HEALTH MAINTENANCE Final Result * Hepatitis C Screening (07/23/2018) Pathologist [facility] Hepatitis C Screening abstracted [facility] Provider HEALTH MAINTENANCE Final Result * Colonoscopy (03/05/2016) Pathologist [facility] Colonoscopy no interpretation , abstracted Anatomical Region Laterality Modality Other Result [facility] Provider HEALTH MAINTENANCE Final Result from Last 3 Months or Most Recently Relevant to Health Maintenance Insurance [employer] Care Teams Mds Rn Relationship Specialty Start Date End Date Kristie Nassar MD [address] [place] [address] PCP - General 07/09/04
--- OUTSIDE RECORDS SUMMARY | 2024-09-14 08:14 | XMS_ITS | Clinical Summary ---
Author Organization [facility] Facility Address [address] [place] [address] Care Team Providers Care Panel Sewer Name Role Phone Unavailable Primary Care Provider Unavailabl e Social History Tobacco Use Types Packs/Day Years Used Date Smoking Tobacco: Never Assessed Comments Unknown Sex and Gender Information Value Date Recorded Sex Assigned at Not on file Legal Sex Female 11:02 AM EDT Gender Identity Not on file Sexual Orientation Not on file Plan of Treatment Health Maintenance Due Date Last Done Comments Breast Cancer Screening 1965 Hepatitis B Vaccine (1 of 3 - 19+ 3-dose series) 03/22 Colorectal Cancer Screening: Annual FOBT 2016 Colorectal Cancer Screening: Colonoscopy 2016 Colorectal Cancer Screening: Sigmoidoscopy 2016 Pneumococcal Vaccine: 50+ Years (1 of 1 - PCV) 017 Influenza Vaccine (Season Ended) 2025 Insurance Aetna Commercial Aetna Commercial JEFFRY [id number] [id number]
--- OUTSIDE RECORDS SUMMARY | 2024-09-14 08:15 | XMS_ITS | Data Portability ---
Author Organization [facility], [address] Address [address] [place] [address] Assessment No assessment recorded. Plan of Treatment Reminders Order Date Submit Date Provider Last Modified By Organization Details Last Modified Time Details Appointments None recorded. Lab rapid flu (A+B) 2022 023 [email or web address] _[facility], [address] [place] [address], [phone], 3 16:45:39 rapid SARS CoV 2 Ag, QL IA, respiratory specimen 2021 022 [email or web address] _[facility], [address] [place] [address], [phone], 2 16:35:36 Referral None recorded. Procedures None recorded. Surgeries None recorded. Imaging None recorded. Medication Orders Diflucan 150 mg tablet 2022 023 [facility] #2339, [address] [place], [address], 3 16:45:43 albuterol sulfate HFA 90 mcg/actuati on aerosol inhaler 2022 023 [facility] #2339, [address] [place], [address], 3 16:45:43 Tessalon Perles 100 mg capsule 2022 023 [facility] #2339, [address] [place], [address], 3 16:45:43 Medrol (Pete) 4 mg tablets in a dose pack 2022 023 [facility] [address] [place] [address], [address], 3 16:45:43 prednisone 20 mg tablet 2021 [address] [facility] [address] [address] [place] [address], [address], 3 16:11:55 albuterol sulfate HFA 90 mcg/actuati on aerosol inhaler 2021 [facility] [address] [place] [address], [address], 2 16:35:39 doxycycline hyclate 100 mg capsule 2021 [address]22 [address] [address] [place] [address], [address], 3 16:11:52 Patient TargetsNo targets recorded. Patient Instructions Encounter Date Encounter Id Patient Instructions Last Modified By Organization Details Last Modified Time 04/19/2022 [id number] bronchitis: care instructions [email or web address] Not available 04/19/2022 16:35:36 05/22/2022 [id number] cough: care instructions [email or web address] Not available 05/22/2022 16:45:39 Reason for Referral None Reported. Results Created Date Observation Date Name Description Value Unit Range Abnormal Flag Note LastModifiedBy Organization Detail LastModifiedTime 04/19/20 22 04/19/2022 rapid SARS CoV 2 Ag, QL IA, respi rator y speci men Unknown Analyte negati ve Not Available [address] [place] [address], [phone], 04/19/2022 16:11:32 05/22/19 23 05/22/2022 rapid flu (A+B) Unknown Analyte Normal = Negati ve Not Available [address]gary valente [address] [place], [address], 05/22/2022 16:12:16 05/22/19 23 05/22/2022 rapid flu (A+B) Unknown Analyte negati ve Not Available [address]gary valente [address] [place], [address], 05/22/2022 16:12:16 05/22/19 23 05/22/2022 rapid flu (A+B) Unknown Analyte Normal = Negati ve Not Available [address]gary valente [address] [place], [address], 05/22/2022 16:12:16 05/22/19 23 05/22/2022 rapid flu (A+B) Unknown Analyte negati ve Not Available [facility] [address] [place], [address], 05/22/2022 16:12:16 Result Notes None recorded. Problems Name Problem SNOMED Code Status Onset Date Resolution Date Notes Provider Name and Address Organization Details Recorded Time Gastroesophage al reflux disease 479476588 Active 2021 VILLA [place] - [facility] 2 16:09:55 Hyperlipidemia 04280730 Active 2021 VILLA DESAI null, [place] - [facility] 2 16:10:06 Hypertensive disorder 99808325 Active 2021 VILLA DESAI null, [place] - [facility] 2 16:10:23 Problem Notes None recorded. Procedures Surgical History Date Name Laterality Status Provider Name and Address Organization Details Recorded Time 1 tonsillectomy completed VILLA DESAI [place] - [facility] 04/19/2022 16:11:16 Imaging Results None recorded. Procedure Notes None recorded. Medical Equipment None Reported. Allergies Allergen ID Allergen Name Allergen Category Reaction Reaction Severity Criticality Documentation Date Start Date Code Code System Note Provider Name and Address Organization Details Recorded Time 1586 Lipitor medicatio n rash Not available Not available 04/19/2022 56192 5 RxNorm JT Carroll - [facility] 16:08:51 Medications Name Sig Start Date Stop Date Status Note LastModified by Organization Details LastModified Time cyclobenzap rine 10 mg tablet 04/19 completed Not Available Not Available Not Available doxycycline hyclate 100 mg capsule Take 1 capsule twice a day by oral route for 7 days. 05/22 completed Not Available Not Available Not Available tizanidine 2 mg tablet 04/19 completed Not Available Not Available Not Available nystatin 100,000 unit/gram topical ointment 04/19 completed Not Available Not Available Not Available Medrol (Pete) 4 mg tablets in a dose pack Take 1 dose pk by oral route for 5 days. 2022 active Not Available Not Available Not Avai lable prednisone 20 mg tablet Take 2 tablets every day by oral route for 5 days. 05/22 completed Not Available Not Available Not Available Diflucan 150 mg tablet Take 1 tablet by oral route. 2022 active Not Available Not Available Not Avai lable fluocinonid e 0.05 % topical ointment 04/19 completed Not Available Not Available Not Available omeprazole 40 mg capsule,del ayed release 04/19 completed Not Available Not Available Not Available aspirin 81 mg tablet,wes yed release active Not Available Not Available Not Available simvastatin 40 mg tablet active Not Available Not Available Not Available ketorolac 10 mg tablet 04/19 completed Not Available Not Available Not Available Tessalon Perles 100 mg capsule Take 1 capsule 3 times a day by oral route for 5 days. 2022 active Not Available Not Available Not Avai lable famotidine 20 mg tablet active Not Available Not Available Not Available diclofenac sodium 75 mg tablet,wes yed release 04/19 completed Not Available Not Available Not Available lisinopril 5 mg tablet active Not Available Not Available Not Available gabapentin 100 mg capsule 04/19 completed Not Available Not Available Not Available nystatin 100,000 unit/gram topical powder 04/19 completed Not Available Not Available Not Available albuterol sulfate HFA 90 mcg/actuati on aerosol inhaler Inhale 2 puffs every 4 hours by inhalatio n route for 10 days. 2022 active Not Available Not Available Not Avai lable naproxen 500 mg tablet 04/19 completed Not Available Not Available Not Available cyclobenzap rine 5 mg tablet 04/19 completed Not Available Not Available Not Available Flowflex COVID-19 Antigen Home Test kit 04/19 completed Not Available Not Available Not Available Vitals Date Recorded Body height Body mass index (BMI) Body weight Oxygen saturation Oxygen saturation in Arterial blood by Pulse oximetry Heart rate Respiratory rate Body temperature Systolic blood pressure Diastolic blood pressure Provider Name and Address Organization Details Last Updated DateTime 3 157.48 cm 38.8 kg/m2 84444.5 8 g 97 % 97 % 85 /min 18 /min 98.4 [degF] 128 mm[Hg] 85 mm[Hg] Dayanna Frances [facility] 3 16:11:24 Date Recorded Body height Body mass index (BMI) Body weight Oxygen saturation Oxygen saturation in Arterial blood by Pulse oximetry Pain severity - 0-10 verbal numeric rating [Score] - Reported Heart rate Respiratory rate Body temperature Systolic blood pressure Diastolic blood pressure Provider Name and Address Organization Details Last Updated DateTime 2 157.48 cm 40.2 kg/m2 44920.3 2 g 97 % 97 % 5 78 /min 18 /min 98.4 [degF] 120 mm[Hg] 80 mm[Hg] VILLA DESAI [facility] 2 16:07:49 Social History Question Answer Notes LastModified by Organizat ion Details LastModified Time Tobacco Smoking Status Never Smoker VILLA medina [place] - [facility] 04/19/2022 16:10:46 What Is Your Level Of Alcohol Consumption? Occasional [email or web address] Information not available 04/19/2022 Have You Had Direct Contact, Or Contact During Intimacy, With Monkeypox Rash, Scabs, Or Body Fluids From A Person With Monkeypox? No [email or web address] Information not available 05/22/2022 Do You Use Any Illicit Or Recreational Drugs? No [email or web address] Information not available 04/19/2022 Have You Recently Traveled Abroad? No [email or web address] Information not available 04/19/2022 Do You Or Have You Ever Used Any Other Forms Of Tobacco Or Nicotine? No Information not available 04/19/2022 Sex: Unknown Functional Status None recorded. Mental Status None recorded. Family History Relationship Description Onset Age of this Age Resolved Age Notes LastModified by Organization Details LastModified Time Father No current problems or disability [email or web address] Not available 04/19 16:10:27 Mother No current problems or disability Not available 04/19 16:10:27 Medical History No medical history recorded. Gynecological HistoryNo gynecological history recorded. Obstetrics History GPAL:G 0 P 0 0 0 0 Immunizations Vaccine Type Date Status Note Provider Nam e and Address Organization Details Recorded Time COVID-19, mRNA, LNP-S, PF, 30 mcg/0.3 mL dose 04/12/2021 completed Dayanna Yvrose null, [place] - [facility] 05/22/2022 16:11:42 COVID-19, mRNA, LNP-S, PF, 30 mcg/0.3 mL dose 03/18/2021 completed Dayanna Yvrose null, [place] - [facility] 05/22/2022 16:11:42 Past Encounters Encounter ID Performer Location Encounter Start Date Encounter Closed Date Diagnosis/Indication Diagnosis SNOMED-CT Code Diagnosis ICD10 Code Diagnosis Note [id number] [address] [place] [address] 12/21/2020 15:27:14 12/21/2020 16:44:27 [id number] [address] [place] [address] 02/07/2016 08:10:27 02/07/2016 08:54:03 [id number] [address] [place] [address] 10/24/2015 13:16:16 10/24/2015 14:57:39 [id number] Rubina nair MD [address] [place] [address] 04/19/2022 15:40:51 04/19/2022 16:51:52 Bronchitis 02045608 J40 [id number] Fredy Ross MD [address] [place] [address] 05/22/2022 15:52:27 05/22/2022 16:53:29 Acute bronchitis 17184486 J20.9 Vaginitis 96427098 N76.0 Health Concerns Section Related Observation LastModified by Organization Detai ls LastModified Time None Recorded Concern Status LastModified by Organization Details LastModified Time None Recorded Advance Directives Directive None Recorded Payers Encounter Date Sequence Insurance Name Policy Number Policy Young Covered Member ID Young Member ID Guarantor Name 12/21/2020 1 [employer] [id number] Sudha Tardiff [id number] Sudha Tardiff 04/19/2022 1 [employer] [id number] Sudha Tardiff [id number] Sudha Tardiff 05/22/2022 1 [employer] [id number] Sudha Tardiff [id number] Sudha Tardiff Notes Date Note Type Note Provider Name and Address Organization Details Recorded Time 04/19/2022 text/html CoughReported bypatient.Quality:p roductive cough; symptoms worse with lying down Severity:moderate Duration:constant; 4 days Timing:constant Context:family members ill with similar symptoms Modifying Factors:Cough Supprressant Associated Symptoms:wheezing;h urts to breath Rubina Brown MD [address] [place], [address], [place] [employer] 04/19/2022 17:57:42 05/22/2022 text/html CoughReported bypatient.Quality:h alcides;productive cough; intermittent Severity:worsening; moderate Duration:intermitte nt; 10 days Context:family members ill with similar symptoms;history of bronchitis Associated Symptoms:no fever; no chills; no chest pain; no heartburn; no nausea; no vomiting; no edema Fredy Ross MD [address] [place], [address], [place] - [facility] 05/22/2022 16:50:44 OBGyn Episode No OBEpisode recorded.
== END 2024-09-14 08:59 | disposition home or self-care (01) ==
PROVIDERS: PCP Internal Medicine; Visit Provider Physician Assistant
DX: J06.9 Acute upper respiratory infection, unspecified (principal)

== ENCOUNTER 2024-09-14 08:01 | Outpatient (REF) | payer OTHER, SELFPAY ==
--- OUTSIDE RECORDS SUMMARY | 2024-09-14 09:35 | XMS_ITS | Clinical Summary ---
Author Organization [address] [place] [address] [place] [phone] Phone Care Team Providers Care Regional Marketing Director Name Role Phone Kristie Nassar MD Primary Care Provider [phone] Allergies Active Allergy Reactions Criticality Noted Date [...] obesity with BMI of 4 0.0-44.9, adult ([facility] V24, [facility] V28) 03/20/2024 Chronic left shoulder pain 08/30/2023 Carotid stenosis, bilateral 03/11/2023 Overview (03/20/2024): [facility] 07/2021 mild to mod Carotid USN 11/09 - no stenosis JAIME (obstructive sleep apnea) 09/28/2022 Overview (03/20/2024): UNTREATED (11/05/23 & 05/02/23) Type 2 diabetes mellitus wit h peripheral vascular disease ([facility] V24, [facility] V28) 08/28/2021 COVID-19 virus infection [...] 08/26/2024 11:59 PM EDT Hospital Encounter XRAY [address] [phone] Chronic right shoulder pain Discharge Disposition: Home or Self Care 08/26/2024 2:30 PM EDT Office Visit Adult Medicine [address] [phone] Kristie Nassar MD B12 deficiency (Primary Dx); Gastroesophageal reflux disease without esophagitis; Primary hypertension; Hypercholesterolemia ; Type 2 diabetes mellitus with peripheral vascular disease ([facility] V24, [facility] V28); Hyperthyroidism; Vitamin D deficiency; Chronic right shoulder pain 08/13/2024 Telephone Adult Medicine [address] [phone] Kristie Nassar MD Labs Only 08/13/2024 Telephone Obstetrics and Gynecology [address] [phone] Archana Elizondo MD Request For Order(s) from [...] diabetes mellitus wit h peripheral vascular disease ([facility] V24, [facility] V28) 08/28/2021 Vitamin D deficiency [...] EDT Office Visit Obstetrics and Gynecology - [address] [phone] Archana Elizondo MD [address] [place], [place] 09/21/2024 3:30 PM EDT Consult Orthopedics - [address] [phone] Jaswant Gray PA [address] [place], [place] 12/29/2024 4:30 PM EDT Office Visit Adult Medicine South - [address] [phone] Allyson Sharp PA [address] [place], [place] 01/20/2025 11:20 AM EDT Office Visit [facility] [address] [facility] [address] [place] [phone] Meena Escalante MD [address] [place] [address] 02/16/2025 2:30 PM EDT Consult Bariatric Surgery - [place] 175 [facility] [address] [place] [phone] Monica Suarez PA [address] [place] [address] Health Maintenance Due Date Last Done Comments [...] mellitus with peripheral vascular disease (CMS/HCC V24, [facility] V28) CBC AND DIFFERENTIAL Routine [...] LAB CHEMISTRY METHOD 08/27/2024 5:42 PM EDT [facility] Blood Venous blood specimen / Unknown Venipuncture / Unknown 08/26/2024 3:35 PM EDT 08/26/2024 3:35 PM EDT us Kristie Nassar MD LAB BLOOD ORDERABLES Final Resul t [facility] [address] [place] [address], * (ABNORMAL) Vitamin D 25 hydroxy (08/26/2024 3:35 PM EDT) Vit D, 25-Hydroxy 24.1(L) 30.0 - 80.0 ng/mL LAB CHEMISTRY METHOD 08/26/2024 7:39 PM EDT [facility] Blood Venous blood specimen / Unknown Venipuncture / Unknown 08/26/2024 3:35 PM EDT 08/26/2024 3:35 PM EDT Kristie Nassar MD LAB BLOOD ORDERABLES Final Resul t Performing Organization Address [facility]/ZIP Co de Phone Number [facility] [address] [place] [address], [place] [phone] * Vitamin B12 (08/26/2024 3:35 PM EDT) Vitamin B-12 339 250 - 900 pcg/mL LAB CHEMISTRY METHOD 08/26/2024 7:21 PM EDT [facility] Blood Venous blood specimen / Unknown Venipuncture / Unknown 08/26/2024 3:35 PM EDT 08/26/2024 3:35 PM EDT Kristie Nassar MD LAB BLOOD ORDERABLES Final Resul t Performing Organization Address [facility] Co de Phone Number [facility] [address] [place] [address], [place] [phone] * XR Shoulder 2+ Views Right (08/26/2024 3:12 PM EDT) Anatomical Region Laterality Modality Upper Extremities, Shoulder Right Radi ographic Imaging 08/26/2024 7:12 PM EDT Impressions 08/26/2024 7:15 PM EDT Minimal degenerative changes at the acromioclavicular joint. POS - [id number] -------- FINAL REPORT -------- Dictated By: Alicia Nichols Dictated Date: 08/26/2024 19:12 ET Assigned Physician: Alicia Nichols Reviewed and Electronically Signed By: Alicia Nichols Signed Date: 08/26/2024 19:15 ET Workstation ID: [id number] Transcribed By: Self Edit Transcribed Date: 08/26/2024 19:12 ET Narrative 08/26/2024 7:15 PM EDT EXAM: Right shoulder x-ray HISTORY: Chronic right shoulder pain. COMPARISON: None FINDINGS: 4 views performed. Minimal degenerative changes at the acromioclavicular joint. ??No appreciable degenerative changes at the glenohumeral joint. ??No evidence of an acute fracture or dislocation. ??No destructive bone lesion. ??No definite soft tissue calcifications. Procedure Note Alicia Nichols MD - 08/26/2024 EXAM: Right shoulder x-ray HISTORY: Chronic right shoulder pain. COMPARISON: None FINDINGS: 4 views performed. Minimal degenerative changes at the acromioclavicular joint. Noappreciable degenerative changes at the glenohumeral joint. No evidenceof an acute fracture or dislocation. No destructive bone lesion. Nodefinite soft tissue calcifications. IMPRESSION: Minimal degenerative changes at the acromioclavicular joint. POS - [id number] -------- FINAL REPORT -------- Dictated By: Alicia Nichols Dictated Date: 08/26/2024 19:12 ET Assigned Physician: Alicia Nichols Reviewed and Electronically Signed By: Alicia Nichols Signed Date: 08/26/2024 19:15 ET Workstation ID: [id number] Transcribed By: Self Edit Transcribed Date: 08/26/2024 19:12 ET Kristie Nassar MD IMG XR PROCEDURES Final Result * (ABNORMAL) Lipid panel with reflex to direct LDL (08/20/2024 9:19 AM EDT) Cholesterol 193 0 - 200 mg/dL LAB CHEMISTRY METHOD 08/20/2024 4:40 PM EDT [facility] Triglycerides 200(H) 0 - 150 mg/dL LAB CHEMISTRY METHOD 08/20/2024 4:40 PM EDT [facility] HDL 44 >=40 mg/dL LAB CHEMISTRY METHOD 08/20/2024 4:40 PM EDT [facility] LDL Calculated 109(H) 0 - 100 mg/dL LAB CHEMISTRY METHOD 08/20/2024 4:40 PM EDT [facility] VLDL Cholesterol Daniel 40 mg/dL LAB CHEMISTRY METHOD 08/20/2024 4:40 PM EDT [facility] Non HDL Chol. (LDL+VLDL) 149(H) <145 mg/dL LAB CHEMISTRY METHOD 08/20/2024 4:40 PM EDT [facility] Chol/HDL Ratio 4.4 0.0 - 4.4 LAB CHEMISTRY METHOD 08/20/2024 4:40 PM EDT [facility] Blood Venous blood specimen / Unknown Venipuncture / Unknown 08/20/2024 9:19 AM EDT 08/20/2024 9:19 AM EDT us Kristie Nassar MD LAB BLOOD ORDERABLES Final Resul t [facility] [address] [place] [address], * (ABNORMAL) CBC auto differential (08/20/2024 9:19 AM EDT) WBC 7.8 4.8 - 10.8 K/mcL LAB HEMETOLOGY METHOD 08/20/2024 10:59 AM EDT [facility] RBC 4.70 3.80 - 4.80 M/mcL LAB HEMETOLOGY METHOD 08/20/2024 10:59 AM EDT [facility] Hemoglobin 12.1 11.5 - 16.0 g/dL LAB HEMETOLOGY METHOD 08/20/2024 10:59 AM EDT [facility] Hematocrit 39.5 35.0 - 47.0 % LAB HEMETOLOGY METHOD 08/20/2024 10:59 AM [facility] MCV 83.7 79.0 - 98.0 FL LAB HEMETOLOGY METHOD 08/20/2024 10:59 AM [facility] MCH 25.6(L) 27.0 - 32.0 pcg LAB HEMETOLOGY METHOD 08/20/2024 10:59 AM [facility] MCHC 30.6(L) 32.0 - 37.0 g/dL LAB HEMETOLOGY METHOD 08/20/2024 10:59 AM [facility] RDW 15.0 11.0 - 15.0 % LAB HEMETOLOGY METHOD 08/20/2024 10:59 AM [facility] Platelets 314 130 - 400 K/mcL LAB HEMETOLOGY METHOD 08/20/2024 10:59 AM [facility] MPV 10.2 7.0 - 11.0 FL LAB HEMETOLOGY METHOD 08/20/2024 10:59 AM [facility] NRBC 0.0 <1.0 % LAB HEMETOLOGY METHOD 08/20/2024 10:59 AM [facility] NRBC Absolute 0.00 <0.10 K/mcL LAB HEMETOLOGY METHOD 08/20/2024 10:59 AM [facility] Neutrophils Relative 59.9 % LAB HEMETOLOGY METHOD 08/20/2024 10:59 AM [facility] Lymphocytes Relative 29.9 % LAB HEMETOLOGY METHOD 08/20/2024 10:59 AM [facility] Monocytes Relative 6.2 % LAB HEMETOLOGY METHOD 08/20/2024 10:59 AM [facility] Eosinophils Relative 2.8 % LAB HEMETOLOGY METHOD 08/20/2024 10:59 AM [facility] Basophils Relative 0.9 % LAB HEMETOLOGY METHOD 08/20/2024 10:59 AM EDT [facility] Immature Granulocytes Relative 0.3 % LAB HEMETOLOGY METHOD 08/20/2024 10:59 AM EDT [facility] Neutrophils Absolute 4.68 1.50 - 7.00 K/mcL LAB HEMETOLOGY METHOD 08/20/2024 10:59 AM EDT [facility] Lymphocytes Absolute 2.33 1.00 - 5.00 K/mcL LAB HEMETOLOGY METHOD 08/20/2024 10:59 AM EDT [facility] Monocytes Absolute 0.48 0.20 - 1.00 K/mcL LAB HEMETOLOGY METHOD 08/20/2024 10:59 AM EDT [facility] Eosinophils Absolute 0.22 0.00 - 0.50 K/mcL LAB HEMETOLOGY METHOD 08/20/2024 10:59 AM EDT [facility] Basophils Absolute 0.07 0.00 - 0.20 K/mcL LAB HEMETOLOGY METHOD 08/20/2024 10:59 AM EDT [facility] Immature Granulocytes Absolute 0.02 0.00 - 0.03 K/mcL LAB HEMETOLOGY METHOD 08/20/2024 10:59 AM EDT [facility] Blood Venous blood specimen / Unknown Venipuncture / Unknown 08/20/2024 9:19 AM EDT 08/20/2024 9:19 AM EDT us Kristie Nassar MD LAB BLOOD ORDERABLES Final Resul t [facility] [address] [place] [address], * Microalbumin creatinine urine ratio (08/20/2024 9:19 AM EDT) Creatinine, Urine 118.0 mg/dL LAB CHEMISTRY METHOD 08/20/2024 11:17 AM EDT [facility] Microalb, Ur 5.3 0.0 - 29.0 mg/L LAB CHEMISTRY METHOD 08/20/2024 11:17 AM EDT [facility] Microalb/Creat Ratio 4 <30 mg/g creat LAB CHEMISTRY METHOD 08/20/2024 11:17 AM EDT [facility] Urine Urine specimen obtained by clean catch procedure / Unknown Non-blood Collection / Unknown 08/20/2024 9:19 AM EDT 08/20/2024 9:19 AM EDT us Kristie Nassar MD LAB URINE ORDERABLES Final Resul t Performing Organization Address [facility]/ZIP Co de Phone Number [facility] [address] [place] [address], [place] [phone] * (ABNORMAL) Hemoglobin A1c (08/20/2024 9:19 AM EDT) Hemoglobin A1C 6.7(H) <6.5 % LAB CHEMISTRY METHOD 08/20/2024 11:04 PM EDT [facility] Mean Bld Glu Estim. 146 mg/dL LAB CHEMISTRY METHOD 08/20/2024 11:04 PM EDT [facility] Blood Venous blood specimen / Unknown Venipuncture / Unknown 08/20/2024 9:19 AM EDT 08/20/2024 9:19 AM EDT us Kristie Nassar MD LAB BLOOD ORDERABLES Final Resul t [facility] [address] [place] [address], [place] [phone] * (ABNORMAL) Comprehensive metabolic panel (08/20/2024 9:19 AM EDT) Sodium 135 133 - 145 mmol/L LAB CHEMISTRY METHOD 08/20/2024 4:40 PM EDT [facility] Potassium 4.1 3.5 - 5.5 mmol/L LAB CHEMISTRY METHOD 08/20/2024 4:40 PM [facility] Chloride 103 96 - 110 mmol/L LAB CHEMISTRY METHOD 08/20/2024 4:40 PM [facility] CO2 27 21 - 32 mmol/L LAB CHEMISTRY METHOD 08/20/2024 4:40 PM [facility] Anion Gap 5 3 - 11 LAB CHEMISTRY METHOD 08/20/2024 4:40 PM [facility] Glucose 120(H) 70 - 100 mg/dL LAB CHEMISTRY METHOD 08/20/2024 4:40 PM [facility] BUN 13 5 - 25 mg/dL LAB CHEMISTRY METHOD 08/20/2024 4:40 PM [facility] Creatinine 0.77 0.50 - 1.10 mg/dL LAB CHEMISTRY METHOD 08/20/2024 4:40 PM [facility] eGFR 90 >=60 mL/min/1. 73m2 LAB CHEMISTRY METHOD 08/20/2024 4:40 PM [facility] Comment:Calculation based on the??Chronic Kidney Disease Epidemiology Collaboration (CKD-EPI) equation refit??without adjustment for race. BUN/Creatinine Ratio 16.9 LAB CHEMISTRY METHOD 08/20/2024 4:40 PM [facility] Calcium 9.3 8.5 - 10.5 mg/dL LAB CHEMISTRY METHOD 08/20/2024 4:40 PM [facility] AST (SGOT) 23 10 - 42 unit/L LAB CHEMISTRY METHOD 08/20/2024 4:40 PM [facility] ALT (SGPT) 29 10 - 60 unit/L LAB CHEMISTRY METHOD 08/20/2024 4:40 PM [facility] Alkaline Phosphatase 111 42 - 121 unit/L LAB CHEMISTRY METHOD 08/20/2024 4:40 PM EDT [facility] Total Protein 7.8 6.0 - 8.0 g/dL LAB CHEMISTRY METHOD 08/20/2024 4:40 PM EDT [facility] Albumin 3.9 3.2 - 5.0 g/dL LAB CHEMISTRY METHOD 08/20/2024 4:40 PM EDT [facility] Total Bilirubin 0.5 0.0 - 1.4 mg/dL LAB CHEMISTRY METHOD 08/20/2024 4:40 PM EDT [facility] Blood Venous blood specimen / Unknown Venipuncture / Unknown 08/20/2024 9:19 AM EDT 08/20/2024 9:19 AM EDT Kristie Nassar MD LAB BLOOD ORDERABLES Final Resul t [facility] [address] [place] [address], * Diabetes Foot Exam (11/01/2023) Diabetes: Annual [...] * Cervical Cancer Screening: HPV (05/26/2020) Pathologist [facility] Cervical Cancer Screening: HPV negative, abstracted Result [facility] Provider HEALTH MAINTENANCE Final Result * HIV Screening (07/23/2018) [facility] HIV Screening abstracted Result [facility] Provider HEALTH MAINTENANCE Final Result * Hepatitis C Screening (07/23/2018) Pathologist [facility] Hepatitis C Screening abstracted [facility] Provider HEALTH MAINTENANCE Final Result * Colonoscopy (03/05/2016) Pathologist [facility] Colonoscopy no interpretation , abstracted Anatomical Region Laterality Modality Other Result [facility] Provider HEALTH MAINTENANCE Final Result from Last 3 Months or Most Recently Relevant to Health Maintenance Insurance [employer] Care Teams Regional Marketing Director Relationship Specialty Start Date End Date Kristie Nassar MD [address] [place] [address] PCP - General 07/09/04
--- OUTSIDE RECORDS SUMMARY | 2024-09-14 09:35 | XMS_ITS | Clinical Summary ---
Author Organization [facility] Facility Address [address] [place] [address] Care Team Providers Care Buttonhole Tacker Name Role Phone Unavailable Primary Care Provider [...] Insurance Aetna Commercial Aetna Commercial [id number]
[2024-09-14 11:36] LABS: Influenza A PCR NEGATIVE (Negative); Influenza B PCR NEGATIVE (Negative); Resp Syncy Virus RNA Qual PCR NEGATIVE (Negative); SARS COV2 PCR INHOUSE NEGATIVE (Negative)
== END 2024-09-14 08:02 | disposition home or self-care (01) ==
LOC: HO.LAB 08:01
PROVIDERS: PCP Internal Medicine; Visit Provider Physician Assistant
DX: J06.9 Acute upper respiratory infection, unspecified (principal); R09.89 Other specified symptoms and signs involving the circulatory and respiratory systems
CPT/HCPCS: 0241U

== ENCOUNTER 2024-11-05 08:29 | Outpatient (AMB) | payer OTHER, SELFPAY ==
[2024-11-05 08:30] VITALS: BP 108/84; PULSE 80; TEMP 36.7; O2SAT 97; BMI 38.0
--- NOTE | 2024-11-05 08:30 | MHC.OFFWIV ---
Intake Vital Signs 11/05/24 08:30 Height 5 ft 6 in Weight 235 lb 6 oz BMI 38.0 BP 108/84 Blood Pressure Location Rt brachial Position Sitting Pulse 80 Pulse Source Pulse Oximeter Temp 98.1 F Temp Source Oral Pulse Oximetry (%) 97 Oxygen Delivery Method Room Air Intake Visit Reasons: EP pain on LT ear, dizziness Intake Note: Patient presents with left ear pain times 3 day. state ear is more painful when swallowing. Patient Tobacco Use Status: Never used Tobacco Allergies atorvastatin (From Lipitor) Allergy (Intermediate, Verified 11/05/24 08:35) Rash prednisone Allergy (Mild, Verified 11/05/24 08:35) Gastrointestinal Upset Medication List - Last Reconciled 11/05/24 by Francesca Chacon NP aspirin 81 mg PO DAILY lisinopril 5 mg PO DAILY omeprazole 20 mg PO DAILY simvastatin 40 mg PO BEDTIME sumatriptan succinate 25 mg PO DAILY MRX1 PRN HPI HPI Comments History of Present Illness Details 59 y/o Female patient who presents to the walk in clinic with c/o Left Ear pain associated with Dizziness for 3 days now. Pt does have h/o Seasonal allergies, and takes Claritin and Flonase sometimes. [facility] Medical History (Updated 11/05/24 @ 09:09 by Francesca Chacon NP) Allergic rhinitis HLD (hyperlipidemia) HTN (hypertension) GERD (gastroesophageal reflux disease) Social History Patient Tobacco Use Status: Never used Tobacco Review of Systems Const All systems reviewed & are unremarkable except as noted in HPI and below Physical Exam Vital Signs: Last Vital Signs Temp 98.1 F 11/05/24 08:30 Pulse 80 11/05/24 08:30 BP 108/84 11/05/24 08:30 Pulse Ox 97 11/05/24 08:30 Oxygen Delivery Method Room Air 11/05/24 08:30 BMI result Body Mass Index 38.0 Const General: comfortable and no acute distress Nutritional Appearance: overweight Orientation/consciousness: patient oriented x3 HEENT Head: Yes normocephalic Ears: external ears normal and TM abnormal bulging and with fluid behind the TM bilateral General nose exam: Abnormal mucous membranes and turbinates present boggy and erythematous Face and sinus: Yes sinuses nontender Mouth: moist mucous membranes Throat: Yes postnasal drainage Resp Effort & Inspection: normal respiratory effort Auscultation: clear to auscultation bilaterally Cardio Heart sounds: S1 normal heart sound present and S2 normal heart sound present Neuro General: patient oriented x3 Assessment & Plan Assessment & Plan (1) Allergic rhinitis: Code(s): J30.9 - Allergic rhinitis, unspecified Qualifiers: Allergic rhinitis trigger: unspecified Allergic rhinitis seasonality: seasonal Qualified Code(s): J30.2 - Other seasonal allergic rhinitis Plan: Ordered Zyrtec BID Ordered Flonase nasal spray. Medications: New cetirizine (Zyrtec) 10 mg PO DAILY 30 tabs 0RF J30.9 - Allergic rhinitis, unspecified fluticasone propionate 50 mcg/actuation (Flonase Allergy Relief) administer into each nostril 1 spray intranasal DAILY 16 grams 0RF J06.9 - Acute upper respiratory infection, unspecified Discontinued tizanidine Discontinued Reason: No Longer Medically Relevant 2 mg PO Q8H PRN 60 tabs 0RF muscle spasticity Coding Level of Care Code Est Pt Level 4 (94127) Diagnoses Seasonal allergic rhinitis, unspecified trigger J30.2 Allergic rhinitis trigger: unspecified Allergic rhinitis seasonality: seasonal Time Spent (min) 20
--- OUTSIDE RECORDS SUMMARY | 2024-11-05 08:40 | XMS_ITS | Encounter Summary ---
Author Organization [facility] Address [address] [place] [address] Care Team Providers Care Filing Machine Operator Name Role Phone Kristie Nassar MD Primary Care Provider [phone] Reason for Visit * Reason Onset Date Comments Reschedule 10/08/2024 Encounter Details Date Type Department Care Team (Late st Contact Info) Description 10/08/2024 Telephone [facility] [address] [phone] Meena Escalante MD [address] [place] [address] Reschedule Social History Tobacco Use Types Packs/Day Years Used Date Smoking Tobacco: Never Smokeless Tobacco: Never Alcohol Use Standard Drinks/Week Comments Yes 0 (1 standard drink = 0.6 oz pur e alcohol) Comments No Sex and Gender Information Value Date Recorded Sex Assigned at Not on file Legal Sex Female 2:11 PM EST Gender Identity Not on file Sexual Orientation Not on file documented as of this encounter Progress Notes * Monica Castrejon - 10/23/2024 2:53 PM EDT Called patient and left voicemail to reschedule 01/20/25 appointment. Held slot on * Monica Castrejon - 10/08/2024 1:50 PM EDT Called patient re appointment 01/20/25. Have to reschedule held date 01/22/25. SH will be unavailable in office. documented in this encounter Plan of Treatment Upcoming Encounters Date Type Department Care Team (Late st Contact Info) Description 12/29/2024 4:30 PM EDT Office Visit Adult Medicine [facility] [address] [place] [phone] Allyson Sharp PA [address] [place] [address] 01/22/2025 1:00 PM EDT Office Visit [facility] [address] [facility] [address] [place] [phone] Meena Escalante MD [address] [place] [address] 03/09/2025 8:30 AM EDT Consult Bariatric Surgery - [address] [facility] [address] [place] [phone] Monica Suarez PA 175 [facility] [address] [place] [address] documented as of this encounter Visit Diagnoses Not on filedocumented in this encounter Care Teams Filing Machine Operator Relationship Specialty Start Date End Date Kristie Nassar MD [address] [place] [address] PCP - General 07/09/04 documented as of this encounter
== END 2024-11-05 08:59 | disposition home or self-care (01) ==
PROVIDERS: PCP Internal Medicine; Visit Provider Nurse Practitioner Family
DX: J30.2 Other seasonal allergic rhinitis (principal)

== ENCOUNTER → 2024-11-05 08:29 | Outpatient (BNVA) | payer OTHER, SELFPAY | PROVIDERS: PCP Internal Medicine; Visit Provider Nurse Practitioner Family ==

== ENCOUNTER 2024-12-08 22:37 | Emergency (ER) | payer OTHER, SELFPAY ==
--- NOTE | ~2024-12-08 | XR_ITS ---
CLINICAL HISTORY: chest pain 1 view chest x-ray Comparison: CR/SR - XR CHEST 2 VIEWS - 01/29/24 13:53 EDT Findings: No consolidation or effusion. Normal size heart. No acute fracture. IMPRESSION: 1. No acute findings. This document has been electronically signed by: Jose Carlos Ramos MD on 12/08/2024 23:23:52
[2024-12-08 22:38] VITALS: BP 163/77; PULSE 87; RESP 16; TEMP 36.8; O2SAT 100; BMI 42.0
--- NOTE | 2024-12-08 22:44 | ECG_ITS ---
Test Reason : CHEST PAIN Blood Pressure : */* mmHG Vent. Rate : 87 BPM Atrial Rate : 87 BPM P-R Int : 164 ms QRS Dur : 74 ms QT Int : 368 ms P-R-T Axes : 62 -27 22 degrees QTcB Int : 442 ms Normal sinus rhythm Low voltage QRS Borderline ECG When compared with ECG of 29-Jan-2024 12:15, Nonspecific T wave abnormality has replaced inverted T waves in Anterior leads Referred By: Generic ED Physician Electronically Signed By: Jb Bryson
--- NOTE | 2024-12-08 22:56 | MHC.EDTECH ---
@22:55 UNABLE TO COLLECT LAB WORK, PT HARD STICK, STATED SHE USUALLY GETS U/S IVs.
[2024-12-08 23:49] LABS: MANUAL DIFF FLAG NO
[2024-12-08 23:50] LABS: Hematocrit 37.9 % (37.0-47.0); Hemoglobin 12.1 g/dl (12.0-16.0); Imm Gran Abs Auto 0.02 X10*3/uL (0.00-0.03); Imm Gran Pct Auto 0.2 % (0.0-0.4); Lymphocytes Absolute Auto 2.1 X10*3/uL (1.2-4.9); Mean Corpuscular HGB Conc 31.9 g/dl (31.0-35.0); Mean Corpuscular Hemoglobin 25.4 pg (27.0-33.0); Mean Corpuscular Volume 79.6 fL (80.0-98.0); NRBC Abs Auto 0.000 X10*3/uL (0.0-0.012); NRBC Pct Auto 0.0 /100WBC (0.0-0.2); Platelet Count 236 X10*3/uL (160-400); Red Blood Count 4.76 X10*6/uL (4.20-5.50); White Blood Count 8.0 X10*3/uL (4.8-10.8)
[2024-12-09 00:04] LABS: Alanine Aminotransferase 31 U/L (0-31); Albumin Level 4.4 g/dL (3.5-5.0); Alkaline Phosphatase 95 U/L (39-117); Anion Gap 11 (12-20); Aspartate Amino Transferase 29 U/L (5-31); Blood Urea Nitrogen 12 mg/dL (9-16); Calcium 9.3 mg/dL (8.4-10.2); Carbon Dioxide 24 mmol/L (22-29); Chloride 110 mmol/L (96-108); Creatinine Clr Calc Pharmacy 84.8; Estimated Glomerular Filt Rate > 60; Magnesium 2.0 mg/dL (1.6-2.6); Potassium 4.2 mmol/L (3.3-5.1); Sodium 141 mmol/L (135-145); Total Protein 7.8 g/dL (6.5-8.0)
[2024-12-09 00:11] LABS: Troponin-I High Sensitivity < 2.7 ng/L (<3.5-17.0)
--- NOTE | 2024-12-09 00:17 | ED.CHESTPAIN ---
HPI - Chest Pain General Chief Complaint: Chest Pain Stated Complaint: Back pain Time Seen by Provider: 12/09/24 00:09 Source: patient Mode of arrival: ambulatory Limitations: no limitations History of Present Illness ED Provider: Dr. Shena Trujillo HPI narrative: Patient comes to the emergency room complaining of palpitations, bilateral upper back pain, both which self resolved now. Patient asymptomatic. Patient states that [place] today she [place], tried to have a bowel movement, started having palpitations. Patient went to tell her that she was not feeling well, they went home, at home patient to having another bowel movement and she had palpitations again. By time that she arrived to emergency room, she was asymptomatic. Related Data Home Medications ?Medication ?Instructions ?Recorded ?Confirmed aspirin 81 mg tablet,delayed 81 mg PO DAILY 09/12/21 11/05/24 release lisinopril 5 mg tablet 5 mg PO DAILY 09/19/21 11/05/24 simvastatin 40 mg tablet 40 mg PO BEDTIME 11/15/22 11/05/24 sumatriptan succinate 25 mg tablet 25 mg PO DAILY MRX1 PRN Migraine 04/08/23 11/05/24 Headache omeprazole 20 mg capsule,delayed 20 mg PO DAILY 09/14/24 11/05/24 release Previous Rx's ?Medication ?Instructions ?Recorded cetirizine 10 mg tablet (Zyrtec) 10 mg PO DAILY #30 tabs 11/05/24 fluticasone propionate 50 1 spray intranasal DAILY #16 grams 11/05/24 mcg/actuation nasal spray,suspension (Flonase Allergy Relief) Allergies Allergy/AdvReac Type Severity Reaction Status Date / Time atorvastatin (From Lipitor) Allergy Intermediate Rash Verified 12/08/24 22:44 prednisone Allergy Mild Gastrointestinal Verified 12/08/24 22:44 Upset Review of Systems Review of Systems: Constitutional : No Weight loss, No Fever, No Chills, No Night Sweats, No Fatigue, No Malaise ENT/Mouth : No Hearing loss, No Ear Pain, No Nasal Congestion, No Sinus Pain, No Hoarseness, No sore throat, No Rhinorrhea, No Swallowing Difficulty Eyes: No Eye Pain, No Swelling, No Redness, No Foreign Body, No Discharge, No Vision Changes Cardiovascular : No Chest Pain, No SOB, No Dyspnea on Exertion, No Orthopnea, No Edema, complaining of Palpitations Respiratory : No Cough, No Sputum, No Wheezing, No Smoke Exposure, No Dyspnea Gastrointestinal : No Nausea, No Vomiting, No Diarrhea, No Constipation, No abdominal Pain, No Hematochezia, No Melena Genitourinary : no irregular bleeding, No Dysuria, No Urinary Frequency, No Hematuria, No Urinary Incontinence, No Urgency, No Flank Pain, No Urinary Flow Changes, No Hesitancy Musculoskeletal : Complaining of upper back pain which self-resolved, No joint pain, No Myalgias, No Joint Swelling Skin : No Skin Lesions, No rash Neuro : No Weakness, No Numbness, No Paresthesias, No Loss of Consciousness, No Dizziness, No Headache Psych : No Anxiety/Panic, No Depression, No SI/HI/AH/VH, No Social Issues, Heme/Lymph: No Bruising, No Bleeding,No Lymphadenopathy Endocrine : No Polyuria, No Polydipsia, No Temperature Intolerance PMFSH Past Medical History Medical History Allergic rhinitis HLD (hyperlipidemia) HTN (hypertension) GERD (gastroesophageal reflux disease) Social History Social History Patient Tobacco Use Status: Never used Tobacco Do you have a plan to hurt others: No Plan Physical Exam Exam: Exam: Appearance: Alert. Oriented X3. No acute distress. Well-appearing Eyes: Pupils equal, round and reactive to light. ENT: Pharynx normal. Neck: Normal inspection. Neck supple. No lymph nodes noted. No crepitus CVS: Normal heart rate and rhythm. Pulses normal. Normal S1 and S2 Respiratory: No respiratory distress. Breath sounds normal. No Wheezing. No rales Abdomen: Soft and nontender. No rigidity. No distention. Back: No pain to palpation, no C-spine lumbar spine/thoracic spine tenderness, no pain to palpation is suprascapular area Skin: Skin warm and dry. Normal skin color. Normal skin turgor. Extremities: No lower extremity edema. No Lacerations. No Rash Neuro: Oriented X 3. No motor deficit. No sensory deficit. Moving all extremities. No slurred speech. CN 2 through 12 grossly intact Psych: calm, cooperative, normal affect but a bit anxious Vital Signs: Vital Signs: Last Vital Signs Temp 98.2 F 12/08/24 22:38 Pulse 87 12/08/24 22:38 Resp 16 12/08/24 22:38 BP 163/77 H 12/08/24 22:38 Pulse Ox 100 12/08/24 22:38 O2 Del Method Room Air 12/08/24 22:38 BMI result Body Mass Index 42.0 Course Course Course Narrative: Patient comes to the emergency room complaining of palpitations, upper back pain which self-resolved Patient states that she has had atypical chest pain in the past, has an appointment pending with cardiology Medical Decision Making Medical Decision Making [facility] Narrative: My interpretation of EKG: Normal sinus rhythm, heart rate 87, no ST segment depression or elevation, nonspecific T-wave inversion in V2, QTC 442 My interpretation labs car difficult abnormality in patient's hematology or chemistry, normal magnesium, normal LFTs, normal troponin, ETOH negative, Chest x-ray negative Patient has been in the panel monitor since patient arrived to the main ED, no arrhythmias were detected. Patient states she has an appointment pending With cardiology. I discussed with the patient that eventually she may need a Holter monitor evaluation. At this time, patient is asymptomatic Patient's vitals stable Differential Diagnosis Differential Diagnoses: The differential diagnosis associated with the presentation includes (Palpitations, anxiety, musculoskeletal pain, spasms) Admission/Observation Consideration of admission/observation: Escalation of care including admission/observation considered (Given patient's age and symptoms, observation was considered) Lab Data MDM Lab Attestation statement: I reviewed the patient's lab results. 12/08/24 23:43 12/08/24 23:43 Labs: Lab Results 12/08/24 Range/Units 23:43 WBC 8.0 (4.8-10.8) X10*3/uL RBC 4.76 (4.20-5.50) X10*6/uL Hgb 12.1 (12.0-16.0) g/dl Hct 37.9 (37.0-47.0) % MCV 79.6 L (80.0-98.0) fL MCH 25.4 L (27.0-33.0) pg MCHC 31.9 (31.0-35.0) g/dl RDW 15.0 (11.0-16.0) % Plt Count 236 (160-400) X10*3/uL MPV 9.6 (9.4-12.3) fL Immature Gran % (Auto) 0.2 (0.0-0.4) % Neut % (Auto) 63.1 (45-73) % Lymph % (Auto) 26.6 (20-40) % Oliver % (Auto) 7.1 (2-11) % Eos % (Auto) 2.6 (0-4) % Baso % (Auto) 0.4 (0-2) % Lymph # (Auto) 2.1 (1.2-4.9) X10*3/uL Oliver # (Auto) 0.6 (0.1-1.2) X10*3/uL Eos # (Auto) 0.2 (0.0-0.4) X10*3/uL Baso # (Auto) 0.0 (0.0-0.2) X10*3/uL Abs Immat Gran (auto) 0.02 (0.00-0.03) X10*3/uL Absolute Neuts (auto) 5.1 (2.0-8.3) x10*3/uL Absolute Nucleated RBC 0.000 (0.0-0.012) X10*3/uL Nucleated RBC % (auto) 0.0 (0.0-0.2) /100WBC Sodium 141 (135-145) mmol/L Potassium 4.2 (3.3-5.1) mmol/L Chloride 110 H (96-108) mmol/L Carbon Dioxide 24 (22-29) mmol/L Anion Gap 11 L (12-20) BUN 12 (9-16) mg/dL Creatinine 0.86 (0.5-1.4) mg/dL Estim Creat Clear Calc 84.8 Estimated GFR > 60 Random Glucose 126 H (60-115) mg/dL Calcium 9.3 (8.4-10.2) mg/dL Magnesium 2.0 (1.6-2.6) mg/dL Total Bilirubin 0.2 (0.0-1.0) mg/dL AST 29 (5-31) U/L ALT 31 (0-31) U/L Alkaline Phosphatase 95 (39-117) U/L Troponin I High Sens < 2.7 (<3.5-17.0) ng/L Total Protein 7.8 (6.5-8.0) g/dL Albumin 4.4 (3.5-5.0) g/dL Ethyl Alcohol < 10 mg/dL Critical Care Time Critical Care Time Critical Care Time: Yes Total Critical Care Time: 35 Attestation: I have personally provided critical care time. Time includes review of lab data, radiology results, discussion with consultants, and monitoring for potential decompensation. Intervention performed as documented. Discharge Plan Discharge Clinical Impression: Palpitations Patient Disposition: Home, Self-Care Instructions: Heart Palpitations (ED) Additional Instructions: Please follow-up with your primary care physician tomorrow. It is possible that you may need a referral for Holter monitor evaluation. If you have any worsening or new symptoms, please return to the emergency room or call 911 Prescriptions: No Action sumatriptan succinate 25 mg tablet 25 mg PO DAILY MRX1 PRN (Reason: Migraine Headache) aspirin 81 mg tablet,delayed release (DR/EC) 81 mg PO DAILY lisinopril 5 mg tablet 5 mg PO DAILY simvastatin 40 mg tablet 40 mg PO BEDTIME omeprazole 20 mg capsule,delayed release(DR/EC) 20 mg PO DAILY cetirizine [Zyrtec] 10 mg tablet 10 mg PO DAILY Qty: 30 0RF fluticasone propionate [Flonase Allergy Relief] 50 mcg/actuation spray,suspension 1 spray intranasal DAILY Qty: 16 0RF Rx Instructions: administer into each nostril Print Language: Malaysian
--- OUTSIDE RECORDS SUMMARY | 2024-12-09 00:30 | XMS_ITS | Data Portability ---
Author Organization [facility], [address] Address [address] [place] [address] Assessment No assessment recorded. Plan of Treatment Reminders Order Date Submit Date Provider Last Modified By Organization Details Last Modified Time Details Appointments None recorded. Lab rapid flu (A+B) 2022 023 [email or web address] _[facility], [address] [place] [address], [phone], 3 16:45:39 rapid SARS CoV 2 Ag, QL IA, respiratory specimen 2021 022 [email or web address] [email or web address] _[facility], [address] [place] [address], [phone], 2 16:35:36 Referral None recorded. Procedures None recorded. Surgeries None recorded. Imaging None recorded. Medication Orders Diflucan 150 mg tablet 2022 023 [facility]/Pharmacy #2339, [address] [place], [address], 3 16:45:43 albuterol sulfate HFA 90 mcg/actuati on aerosol inhaler 2022 023 [facility]/Pharmacy #2339, [address] [place], [address], 3 16:45:43 Tessalon Perles 100 mg capsule 2022 023 [facility]/Pharmacy #2339, [address] [place], [address], 3 16:45:43 Medrol (Pete) 4 mg tablets in a dose pack 2022 023 [facility] [address] [place] [address], [address], 3 16:45:43 prednisone 20 mg tablet 2021 022 [address] [place], [address], 3 16:11:55 albuterol sulfate HFA 90 mcg/actuati on aerosol inhaler 2021 022 [facility] [address] [place], [address], 2 16:35:39 doxycycline hyclate 100 mg capsule 2021 022 [address] [address] [place], [address], 3 16:11:52 Patient TargetsNo targets recorded. Patient Instructions Encounter Date Encounter Id Patient Instructions Last Modified By Organization Details Last Modified Time 04/19/2022 [id number] bronchitis: care instructions [email or web address] Not available 04/19/2022 16:35:36 05/22/2022 [id number] cough: care instructions [email or web address] Not available 05/22/2022 16:45:39 Reason for Referral None Reported. Results Created Date Observation Date Name Description Value Unit Range Abnormal Flag Note LastModifiedBy Organization Detail LastModifiedTime 04/19/20 22 04/19/2022 rapid SARS CoV 2 Ag, QL IA, respi rator y speci men Unknown Analyte negati ve Not Available [address] [place] [address], [place], [address], 04/19/2022 16:11:32 05/22/19 23 05/22/2022 rapid flu (A+B) Unknown Analyte Normal = Negati ve Not Available 2099gary valente [address] [place], [address], 05/22/2022 16:12:16 05/22/19 23 05/22/2022 rapid flu (A+B) Unknown Analyte negati ve Not Available 2099gary valente [address] [place], [address], 05/22/2022 16:12:16 05/22/19 23 05/22/2022 rapid flu (A+B) Unknown Analyte Normal = Negati ve Not Available 2099gary valente [address] [place], [address], 05/22/2022 16:12:16 05/22/19 23 05/22/2022 rapid flu (A+B) Unknown Analyte negati ve Not Available [facility] [address] [place], [address], 05/22/2022 16:12:16 Result Notes None recorded. Problems Name Problem SNOMED Code Status Onset Date Resolution Date Notes Provider Name and Address Organization Details Recorded Time Gastroesophage al reflux disease 937556269 Active 2021 VILLA DESAI null, [place] - [facility] 2 16:09:55 Hyperlipidemia 14481318 Active 2021 VILLA DESAI null, [place] - [facility] 2 16:10:06 Hypertensive disorder 05084809 Active 2021 VILLAANJEL DESAI null, [place] - [facility] 2 [...] n rash Not available Not available 04/19/2022 [id number] RxNorm JT Carroll - [facility] [...] Heart rate Respiratory rate Body temperature Systolic And Diastolic Provider Name and Address Organization Details Last Updated DateTime 3 157.48 cm 38.8 kg/m2 24832.5 8 g 97 % 97 % 85 /min 18 /min 98.4 [degF] 128/85 mm[Hg] Dayanna Frances [facility] 3 16:11:24 Date Recorded Body height Body mass index (BMI) Body weight Oxygen saturation Oxygen saturation in Arterial blood by Pulse oximetry Heart rate Respiratory rate Body temperature Systolic And Diastolic Provider Name and Address Organization Details Last Updated DateTime 2 157.48 cm 40.2 kg/m2 72795.3 2 g 97 % 97 % 78 /min 18 /min 98.4 [degF] 120/80 mm[Hg] VILLA WATERS [employer] [facility] 2 16:07:49 Social History Question Answer Notes LastModified by Teradici Details LastModified Time Tobacco Smoking Status Never Smoker VILLA medina [place] - [facility] 04/19/2022 16:10:46 Have You Had Direct Contact, Or Contact During Intimacy, With Monkeypox Rash, Scabs, Or Body Fluids From A Person With Monkeypox? No [email or web address] Information not available 05/22/2022 Have You Recently Traveled Abroad? No Information not available 04/19/2022 Sex: Unknown Functional Status Question Answer Note LastModified by Terad[employer] Details LastModified Time Do you use any illicit or recreational drugs? No Information not available 04/19/2022 Do you or have you ever used any other forms of tobacco or nicotine? No Information not available 04/19/2022 What is your level of alcohol consumption? Occasional [email or web address] Information not available 04/19/2022 Mental Status None recorded. Family History Relationship Description Onset Age of this Age Resolved Age Notes LastModified by Organization Details LastModified Time Father No current problems or disability [email or web address] Not available 04/19 16:10:27 Mother No current problems or disability [email or web address] Not available 04/19 16:10:27 Medical History No medical history recorded. Gynecological HistoryNo gynecological history recorded. Obstetrics History GPAL:G 0 P 0 0 0 0 Immunizations Vaccine Type Date Status Note Provider Nam e and Address Organization Details Recorded Time COVID-19, mRNA, LNP-S, PF, 30 mcg/0.3 mL dose 04/12/2021 completed Dayannajose Frances null, [place] - [facility] 05/22/2022 16:11:42 COVID-19, mRNA, LNP-S, PF, 30 mcg/0.3 mL dose 03/18/2021 completed Dayanna [place] null, [place] - [facility] 05/22/2022 16:11:42 Past Encounters Encounter ID Performer Location Encounter Start Date Encounter Closed Date Diagnosis/Indication Diagnosis SNOMED-CT Code Diagnosis ICD10 Code Diagnosis Note [id number] [facility] [address] [place] [address] 12/21/2020 15:27:14 12/21/2020 16:44:27 [id number] [facility] [address] [place] [address] 02/07/2016 08:10:27 02/07/2016 08:54:03 [id number] [address] [address] [address] [facility] [address] [place] [address] 10/24/2015 13:16:16 10/24/2015 14:57:39 [id number] Rubina nair [place] [address] [address] [place] [address] 04/19/2022 15:40:51 04/19/2022 16:51:52 Bronchitis 47500770 J40 [id number] Fredy Ross MD [address] [address] [place] [address] 05/22/2022 15:52:27 05/22/2022 16:53:29 Acute bronchitis 67236458 J20.9 Vaginitis 38614877 N76.0 Health Concerns Section Related Observation LastModified by Organization Detai ls LastModified Time None Recorded Concern Status LastModified by Organization Details LastModified Time None Recorded Advance Directives Directive None Recorded Payers Insurance Date Sequence Insurance Name Policy Number Policy Young Covered Member ID Young Member ID Guarantor Name 06/20/2022 1 [employer] [id number] Sudha Ga [id number] Sudha Ga Notes Date Note Type Note Provider Name and Address Organization Details Recorded Time 04/19/2022 text/html CoughReported bypatient.Quality:p roductive cough; symptoms worse with lying down Severity:moderate Duration:constant; 4 days Timing:constant Context:family members ill with similar symptoms Modifying Factors:Cough Supprressant Associated Symptoms:wheezing;h urts to breath Rubina Brown MD [address] [place], [address], [place] - [facility] 04/19/2022 17:57:42 05/22/2022 text/html CoughReported bypatient.Quality:h alcides;productive cough; intermittent Severity:worsening; moderate Duration:intermitte nt; 10 days Context:family members ill with similar symptoms;history of bronchitis Associated Symptoms:no fever; no chills; no chest pain; no heartburn; no nausea; no vomiting; no edema Fredy Ross MD [address] [place], [address], [place] - [facility] 05/22/2022 16:50:44 OBGyn Episode No OBEpisode recorded.
--- OUTSIDE RECORDS SUMMARY | 2024-12-09 00:30 | XMS_ITS | Clinical Summary ---
Author Organization [address] [place] [address] Address [address] [place] [address] Phone Care Team Providers Care Assistant Professor Of Life Sciences Name Role Phone Kristie Nassar MD Primary Care Provider [phone] Allergies Active Allergy Reactions Criticality Noted Date Comments Atorvastatin Calcium 03/08/2006 rash all over Oxycodone Nausea And Vomiting 08/23/2021 Medications cyanocobalamin (VITAMIN B-12) 100 mcg tablet Take 1 tablet (100 mcg total) by mouth 1 (one) time each day. 06/20/19 24 Active nystatin (MYCOSTATIN) ointment Apply every morning in a thin area 01/14/20 24 025 Active SUMAtriptan (IMITREX) 25 mg tablet 1 tab PO at onset of headache. May repeat dose once after 2 hours, if needed. 12/08/19 23 Active fluticasone propionate (FLONASE) 50 mcg/actuation nasal spray Administer 1 spray into each nostril 2 (two) times a day. Shake gently. Before first use, prime pump. After use, clean tip and replace cap. 16 g 04/20/20 24 Active lisinopriL (PRINIVIL,ZEST RIL) 5 mg tablet TAKE 1 TABLET BY MOUTH EVERYDAY AT BEDTIME 90 tablet 1 06/08/19 25 Active aspirin 81 mg EC tablet TAKE 1 TABLET BY MOUTH EVERY DAY 90 tablet 1 06/08/19 25 Active omeprazole (PriLOSEC) [address] capsule Take 1 capsule (20 mg total) by mouth 2 (two) times a day. 180 capsule 09/26/19 25 Active fluocinonide (LIDEX) 0.05 % ointment Apply a thin layer to the affected area MWF nights 30 g 1 10/02/19 25 Active diclofenac (VOLTAREN) 75 mg EC tabletIndicati ons:Chronic right shoulder pain Take 1 tablet (75 mg total) by mouth 2 (two) times a day. Do not crush, chew, or split. 60 tablet 1 10/08/19 25 Active cholecalcifero l (VITAMIN D-3) 50 mcg (2,000 unit) capsule Take 1 capsule (2,000 Units total) by mouth 1 (one) time each day. 90 capsule 1 10/10/19 25 Active simvastatin (ZOCOR) 40 mg tablet TAKE 1 TABLET BY MOUTH EVERYDAY AT BEDTIME 90 tablet 1 12/02/19 25 Active simvastatin (ZOCOR) 40 mg tablet Take 1 Tablet by mouth at bedtime. 06/20/19 24 025 Discontinued Active Problems Problem Noted Date Diagnosed Date Morbid obesity with BMI of 4 0.0-44.9, adult ([facility] V24, [facility] V28) 03/20/2024 Chronic left shoulder pain 08/30/2023 Carotid stenosis, bilateral 03/11/2023 Overview (03/20/2024): [facility] [place] mild to mod Carotid USN 11/09 - no stenosis JAIME (obstructive sleep apnea) 09/28/2022 Overview (03/20/2024): UNTREATED (11/05/23 & 05/02/23) Type 2 diabetes mellitus wit h peripheral vascular disease ([facility] V24, [facility] V28) 08/28/2021 COVID-19 virus infection 03/10/2021 Overview (03/20/2024): 12/07 covid pneumonia Lichen sclerosus 05/26/2020 Overview (08/17/2024): Assessment & Plan (10/02/2024 11:17 AM EDT): Reviewed findings with patient. I reviewed the importance of regular maintenance topical steroid use to prevent symptoms, further scarring, and squamous cell cancer of the vulva. I also explained the importance of regular follow up to ensure she has no evidence of precancerous or cancerous changes and that she is not having side effects from her medication. I reviewed areas of application and amount of medication to use. Pay close attention to labiocrural folds. B12 deficiency 03/26/2020 Thoracic osteoarthritis 03/26/2020 Hypertension [...] Encounters Date Type Department Care Team Description 12/08/2024 5:00 PM EDT Treatment Outpatient Rehabilitation - [address] [phone] Neo Trimble, PT Chronic right shoulder pain (Primary Dx) 12/03/2024 4:30 PM EDT Treatment Outpatient Rehabilitation - [address] [phone] Lizbeth Pena, TASNEEM Chronic right shoulder pain (Primary Dx) 11/30/2024 4:30 PM EDT Treatment Outpatient Rehabilitation - [address] [phone] Fatou Lala, SCHOOL SERVICES OFFICER Chronic right shoulder pain (Primary Dx) 11/25/2024 4:30 PM EDT Treatment Outpatient Rehabilitation - [address] [phone] Fatou Lala, SCHOOL SERVICES OFFICER Chronic right shoulder pain (Primary Dx) 11/23/2024 4:00 PM EDT Treatment Outpatient Rehabilitation - [address] [phone] Fatou Lala, SCHOOL SERVICES OFFICER Chronic right shoulder pain (Primary Dx) 11/11/2024 4:30 PM EDT Treatment Outpatient Rehabilitation - [address] [phone] Fatou Lala, SCHOOL SERVICES OFFICER Chronic right shoulder pain (Primary Dx) 10/29/2024 4:30 PM EDT Evaluation Outpatient Rehabilitation - [address] [phone] Neo Trimble, PT Chronic right shoulder pain 10/29/2024 Plan of Care Documentation Outpatient Rehabilitation - [address] [phone] 10/08/2024 Telephone [facility] [address] [facility] [address] [place] [address] Meena Escalante MD Reschedule 10/07/2024 3:30 PM EDT Consult Orthopedics - [address] [phone] Jaswant Gray PA Chronic right shoulder pain 10/01/2024 3:30 PM EDT Office Visit Obstetrics and Gynecology - [address] [phone] Archana Elizondo MD Lichen sclerosus (Primary Dx); Encounter for screening mammogram for malignant neoplasm of breast from Last 3 Months Immunizations Name Administration [...] diabetes mellitus wit h peripheral vascular disease ([facility] V24, [facility] V28) 08/28/2021 Vitamin D deficiency [...] Sexual Orientation Not on file Obstetrics History Para Term AB IAB SAB Ectopic Multiple Livin g Live Births 2 2 1 1 0 0 0 0 0 1 2 Date Outcome GA Total Labor Labor/2nd/3rd Weight Sex Type Anes PTL Dasia A1 A5 Name Clin Neonat al Demise Term Vag-S pont Living Last Filed Vital Signs Vital Sign Reading Time Taken Comments Blood Pressure 130/70 10/01/2024 3:32 PM EDT Pulse 80 10/01/2024 3:32 PM EDT Temperature 35.7 C (96.2 F) 08/26/2024 2:38 PM EDT Respiratory Rate 16 10/07/2024 3:32 PM EDT Oxygen Saturation 98% 08/26/2024 2:38 PM EDT Inhaled Oxygen Concentration - - Weight 107 kg (235 lb) 10/07/2024 3:32 PM EDT Height 160 cm (5' 3 ) 10/07/2024 3:32 PM EDT Body Mass Index 41.63 10/07/2024 3:32 PM EDT Plan of Treatment Upcoming Encounters Date Type Department Care Team (Late st Contact Info) Description 12/10/2024 4:30 PM EDT Treatment Outpatient Rehabilitation - [address] [phone] Neo Trimble, ERNESTINA 12/29/2024 4:30 PM EDT Office Visit Adult Medicine [address] [phone] Allyson Sharp PA [address] [place], [place] 01/22/2025 1:00 PM EDT Office Visit [facility] - [facility] [address] [facility] [address] [place] [phone] Meena Escalante MD [address] [place] [address] 03/09/2025 8:30 AM EDT Consult Bariatric Surgery - [place] [address] [facility] [address] [place] [phone] Monica Suarez PA [address] [facility] [address] [place] [address] Health Maintenance Due Date Last Done Comments Diabetes: Annual Retina Eye Exam 1977 Hepatitis B Vaccines (1 of 3 - 19+ 3-dose series) 1986 Zoster Vaccines (1 of 2) 2017 Social Influencers of Health Screening 04/28/2022 Pneumococcal Vaccine: 50+ Years (2 of 2 - PCV) 12/26/2022 12/26/2021 COVID-19 Vaccine ( - season) 2024 04/12/2021, 03/18/2021 Depression Screening 05/20/2024 08/16/2023 Diabetes: Annual Foot Exam 10/31/2024 11/01/2023 Breast Cancer Screening 12/22/2024 12/23/19 23, 12/02/2021, 11/30/2020, Additional history exists Influenza Vaccine (#1) 2025 Diabetes: Blood Sugar Control Test (HGBA1C) [...] Procedure Name Priority Date/Time Associated Diagnosis Comments MICROALBUMIN CREATININE URINE RATIO Routine 08/20/2024 9:19 AM EDT Type 2 diabetes mellitus with peripheral vascular disease ([facility] V24, [facility] V28) COMPREHENSIVE METABOLIC PANEL Routine 08/20/2024 9:19 AM EDT Type 2 diabetes mellitus with peripheral vascular disease ([facility] V24, [facility] V28) HEMOGLOBIN A1C Routine 08/20/2024 9:19 AM EDT Type 2 diabetes mellitus with peripheral vascular disease ([facility] V24, [facility] V28) LIPID PANEL WITH REFLEX TO DIRECT LDL Routine 08/20/2024 9:19 AM EDT Hypercholesterolem ia DIABETES FOOT EXAM Routine 11/01/2023 DEPRESSION SCREENING Routine 08/16/2023 SCREENING MAMMOGRAPHY BI 2-VIEW BREAST INC CAD Routine 12/22/2022 7:40 AM EDT Encounter for other screening for malignant neoplasm of breast HPV Routine 05/26/2020 HEPATITIS C SCREENING Routine 07/23/2018 HIV SCREENING Routine 07/23/2018 COLONOSCOPY Routine 03/05/2016 from Last 3 Months or Most Recently Relevant to Health Maintenance Results * (ABNORMAL) Lipid panel with reflex to [...] Final Resul t [facility] [address] [place] [address], [place] [phone] * Microalbumin creatinine urine ratio (08/20/2024 9:19 [...] ORDERABLES Final Resul t Performing Organization Address City/[facility]/ZIP Co de Phone Number [facility] [address] [place] [address], [place] [phone] * (ABNORMAL) Hemoglobin A1c (08/20/2024 9:19 AM [...] Final Resul t [facility] [address] [place] [address], [place] [phone] * (ABNORMAL) Comprehensive metabolic panel (08/20/2024 9:19 AM EDT) Sodium 135 133 - 145 mmol/L LAB CHEMISTRY METHOD 08/20/2024 4:40 PM EDT [facility] Potassium 4.1 3.5 - 5.5 mmol/L LAB CHEMISTRY METHOD 08/20/2024 4:40 PM [facility] Chloride 103 96 - 110 mmol/L LAB CHEMISTRY METHOD 08/20/2024 4:40 PM [facility] CO2 27 21 - 32 mmol/L LAB CHEMISTRY METHOD 08/20/2024 4:40 PM [facility] Anion Gap 5 3 - 11 LAB CHEMISTRY METHOD 08/20/2024 4:40 PM [facility] Glucose 120(H) 70 - 100 mg/dL LAB CHEMISTRY METHOD 08/20/2024 4:40 PM [facility] BUN 13 5 - 25 mg/dL LAB CHEMISTRY METHOD 08/20/2024 4:40 PM [facility] Creatinine 0.77 0.50 - 1.10 mg/dL LAB CHEMISTRY METHOD 08/20/2024 4:40 PM [facility] eGFR 90 >=60 mL/min/1. 73m2 LAB CHEMISTRY METHOD 08/20/2024 4:40 PM [facility] Comment:Calculation based on the Chronic Kidney Disease Epidemiology Collaboration (CKD-EPI) equation refit without adjustment for race. BUN/Creatinine Ratio 16.9 LAB CHEMISTRY METHOD 08/20/2024 4:40 PM [facility] Calcium 9.3 8.5 - 10.5 mg/dL LAB CHEMISTRY METHOD 08/20/2024 4:40 PM [facility] AST (SGOT) 23 10 - 42 unit/L LAB CHEMISTRY METHOD 08/20/2024 4:40 PM [facility] ALT (SGPT) 29 10 - 60 unit/L LAB CHEMISTRY METHOD 08/20/2024 4:40 PM [facility] Alkaline Phosphatase 111 42 - 121 unit/L LAB CHEMISTRY METHOD 08/20/2024 4:40 PM [facility] Total Protein 7.8 6.0 - [...] Final Resul t [facility] [address] [place] [address], * Diabetes Foot Exam (11/01/2023) Diabetes: Annual Foot Exam abstracted Historical Provider MD HEALTH MAINTENANCE Final Result * Depression Screening (08/16/2023) Pathologist [facility] Depression Screening abstracted Historical Provider HEALTH MAINTENANCE [...] interpreted with the aid of computer-aided detection. Comparison is made with 12/02/2021 and as far back as 09/16/2018. Breast parenchyma is heterogeneously dense, limiting mammographic sensitivity. No new suspicious mass, architectural distortion, or suspicious [...] Result * Cervical Cancer Screening: HPV (05/26/2020) Cervical Cancer Screening: HPV negative, abstracted [facility] Provider HEALTH MAINTENANCE Final Result * HIV Screening (07/23/2018) Pathologist [facility] HIV Screening abstracted Result [facility] Provider HEALTH MAINTENANCE Final Result * Hepatitis C Screening (07/23/2018) Hepatitis C Screening abstracted [facility] Provider HEALTH MAINTENANCE Final Result * Colonoscopy (03/05/2016) Colonoscopy no interpretation , abstracted Anatomical Region Laterality Modality Other Historical Provider HEALTH MAINTENANCE Final Result from Last 3 Months or Most Recently Relevant to Health Maintenance Insurance [employer] Care Teams Assistant Professor Of Life Sciences Relationship Specialty Start Date End Date Kristie Nassar MD [address] [place] [address] PCP - General 07/09/04
--- NOTE | 2024-12-09 00:33 | PC.NURSE ---
pt reports chest pain has improved, reviewed discharge instructions with pt. pt verbalized understanding, no sign of distress upon discharge, pt had a steady gait.
[2024-12-09 00:34] VITALS: BP 163/77; PULSE 87; RESP 16; TEMP 36.8; O2SAT 100
== END 2024-12-09 00:34 | disposition home or self-care (01) ==
LOC: HO.ED 12-09 00:28
PROVIDERS: Emergency Provider Emergency Medicine; PCP Internal Medicine
DX: R00.2 Palpitations (principal); I10 Essential (primary) hypertension; E78.5 Hyperlipidemia, unspecified; K21.9 Gastro-esophageal reflux disease without esophagitis; Z79.82 Long term (current) use of aspirin; Z79.02 Long term (current) use of antithrombotics/antiplatelets; Z79.899 Other long term (current) drug therapy
CPT/HCPCS: 36415; 71045; 80053; 80307; 83735; 84484; 85025; 93005; 99283; 99285

== ENCOUNTER → 2024-12-08 22:44 | Outpatient (BNV) | payer OTHER, SELFPAY | PROVIDERS: Emergency Provider Emergency Medicine; PCP Internal Medicine; Visit Provider Radiology Diagnostic Radiology | DX: R07.9 Chest pain, unspecified (principal) | CPT/HCPCS: 71045 ==

== ENCOUNTER → 2024-12-08 22:44 | Outpatient (BNV) | payer OTHER, SELFPAY | PROVIDERS: Emergency Provider Emergency Medicine; PCP Internal Medicine; Visit Provider Internal Medicine Cardiovascular Disease | DX: R07.9 Chest pain, unspecified (principal) | CPT/HCPCS: 93010 ==